=== PATIENT | male | born 1945 | race Caucasian/White ===

== ENCOUNTER 2016-11-07 13:44 | Inpatient (IN) | payer OTHER ==
[2016-11-07] MEDS ORDERED: methylPREDNISolone NA SUCC 125 MG/2 ML VIAL IVPB ONE (13:47)
[2016-11-07 13:50] VITALS: BMI 21.9
--- NOTE | 2016-11-07 13:52 | PDOC ---
History of Present Illness - General Chief Complaint: Shortness of Breath Stated Complaint: SOB Time Seen by Provider: 11/07/16 13:47 History Source: Patient - History of Present Illness Timing/Duration: reports: other Associated Symptoms: reports: cough, fever/chills, shortness of breath, wheezing. denies: chest pain/soreness Past History - Past Medical History Allergies/Adverse Reactions: Allergies Allergy/AdvReac Type Severity Reaction Status Date / Time lisinopril Allergy Swelling Verified 11/07/16 13:50 cyclobenzaprine HCl AdvReac Vomiting Verified 11/07/16 13:50 [From Flexeril] oxycodone AdvReac Vomiting Verified 11/07/16 13:50 Home Medications: Ambulatory Orders Albuterol Sulfate Inhaler - [Ventolin HFA Inhaler -] 1 - 2 inh PO Q4H PRN Omeprazole [Prilosec (RX)] 40 mg PO DAILY 06/23/15 Amlodipine Besylate [Norvasc -] 5 mg PO DAILY #30 tablet 06/25/15 Atorvastatin Ca [Lipitor] 40 mg PO HS 11/07/16 Budesonide/Formeterol Fumarate [SYMBICORT 160/4.5mcg -] 1 inh PO BID 11/07/16 Diazepam 10 mg PO DAILY 11/07/16 Finasteride [Proscar -] 5 mg PO DAILY 11/07/16 Anemia: No Asthma: No Cancer: No Cardiac Disorders: Yes (CAD) CVA: No COPD: Yes CHF: No Dementia: No Diabetes: No GI Disorders: No Disorders: Yes (PKD, BPH) HTN: Yes Hypercholesterolemia: Yes Liver Disease: No Suicide Attempt (Hx): No Seizures: No Thyroid Disease: No - Surgical History Abdominal Surgery: No Appendectomy: No Cardiac Surgery: Yes (QUAD BYPASS) Cholecystectomy: No Lung Surgery: No Neurologic Surgery: No Orthopedic Surgery: No - Immunization History Td Vaccination: No TDAP Vaccination: No Immunization Up to Date: Yes - Psycho/Social/Smoking Cessation Hx Anxiety: No Suicidal Ideation: No Smoking Status: Yes Smoking History: Former smoker Have you smoked in the past 12 months: No Number of Cigarettes Smoked Daily: 0 If you are a former smoker, when did you quit?: 2012 'Breaking Loose' booklet given: 01/08/14 Hx Alcohol Use: Yes (RARE) Drug/Substance Use Hx: No Substance Use Type: None Hx Substance Use Treatment: No Review of Systems - Review of Systems Constitutional: Yes: Fever Respiratory: Yes: Cough, Shortness of Breath, Wheezing *Physical Exam - Physical Exam General Appearance: Yes: Appropriately Dressed, Mild Distress HEENT: positive: Normal Voice Neck: positive: Supple Respiratory/Chest: positive: Wheezing Cardiovascular: positive: S1, S2 Gastrointestinal/Abdominal: positive: Soft. negative: Tender Extremity: positive: Normal Inspection Integumentary: positive: Dry, Warm Neurologic: positive: Fully Oriented, Alert, Normal Mood/Affect ED Treatment Course - LABORATORY CBC & Chemistry Diagram: 11/07/16 13:45 11/07/16 13:45 - RADIOLOGY Radiology Studies Ordered: Category Date Time Status CHEST X-RAY PORTABLE* [RAD] Stat Radiology 11/07/16 13:47 Ordered Medical Decision Making - Medical Decision Making 11/07/16 13:49 71-year-old male, history of hypertension, CAD status post CABG, BPH, COPD on 2 L oxygen at home, denies any admission for same and no history of intubations, here with worsening shortness of breath 3 days. Not relieved with medications at home. Also complaining of wheezing, cough and low-grade fever at home. No chest pain or leg pain/swelling. States symptoms feels like his COPD See exam COPD exacerbation Sating 86% on RA (baseline RA sat 92% as per pt), stable otherwise +diffuse wheezing Rest of exam unremarkable -nebs -pred -cxr r/o pna -ekg/labs -reassess 11/07/16 13:52 11/07/16 14:29 WBC 12 w/ developing PNA on CXR. abx for CAP in progress. Will c/w Dr Payne (pt' s pulm) and PMD and admit at this time 11/07/16 15:12 Pt admitted to hospitalist. Dr Payne aware 11/07/16 15:12 *DC/Admit/Observation/Transfer Diagnosis at time of Disposition: COPD exacerbation Pneumonia Qualifiers: Pneumonia type: due to unspecified organism Laterality: right Lung location: unspecified part of lung Qualified Code(s): J18.9 - Pneumonia, unspecified organism - Discharge Dispostion Condition at time of disposition: Fair Admit: Yes - Referrals Referrals: Macario Zapata MD [Primary Care Provider] -
[2016-11-07 14:00] LABS: BASOPHIL 0.9 % (0-2.0); EOSINOPHIL 0.8 % (0-4.5); MCH 29.8 pg (25.7-33.7); MCHC 32.4 g/dl (32.0-35.9); MEAN CELL VOLUME 91.9 fl (80-96); MEAN PLT VOLUME 8.8 fl (7.5-11.1); NEUTROPHILS 72.6 % (42.8-82.8); PLATELET COUNT 191 K/MM3 (134-434); RDW 13.4 % (11.9-15.9); WHITE BLOOD COUNT 12.8 K/mm3 (4.0-10.0)
[2016-11-07] MEDS: ALBUTEROL SO4 2.5/IPRATROPIUM 0.5 INH SOL 3 ML VIAL.NEB. NEB SCH ×4 (14:00→15:12)
[2016-11-07] MEDS ORDERED: MAGNESIUM SULF 50% (8.12 MEQ/2 ML-1 GM VIAL) IVPB ONE (14:27)
[2016-11-07] MEDS ORDERED: methylPREDNISolone NA SUCC 125 MG/2 ML VIAL ONE (14:27)
[2016-11-07] MEDS ORDERED: AZITHROMYCIN IVPB 500 MG in DEXTROSE 5%-WATER - 250 ML IVPB ONE (14:28)
[2016-11-07 14:29] LABS: ALBUMIN 3.9 g/dl (3.4-5.0); ANION GAP 9 (8-16); BILIRUBIN,TOTAL 0.5 mg/dL (0.2-1.0); CALCIUM 9.4 mg/dL (8.5-10.1); CO2 30 mmol/L (21-32); CREATININE 1.5 mg/dL (0.7-1.3); GLUCOSE,RANDOM 88 mg/dL (74-106); SGOT/AST 19 U/L (15-37); SGPT/ALT 25 U/L (12-78); TOT PROT 7.6 g/dl (6.4-8.2)
[2016-11-07 14:32] LABS: ALK PHOS 107 U/L (45-117); TROPONIN I < 0.02 ng/ml (0.00-0.05)
[2016-11-07] MEDS ORDERED: MAGNESIUM SULF 50% (8.12 MEQ/2 ML-1 GM VIAL) ONE (14:34)
[2016-11-07] MEDS ORDERED: AZITHROMYCIN IVPB 250 ML IVPB ONE (14:35)
[2016-11-07] MEDS ORDERED: CEFTRIAXONE 50 ML ONE (14:35)
[2016-11-07] MEDS ORDERED: ONDANSETRON 4 MG/2 ML VIAL IVPB PRN (16:02)
[2016-11-07] MEDS ORDERED: ACETAMINOPHEN 325 MG TABLET (FP) PO PRN (16:02)
[2016-11-07] MEDS ORDERED: SODIUM CHLORIDE 1,000 ML IV SCH (16:15)
--- NOTE | 2016-11-07 16:15 | PN ---
Progress Note (short form) - Note Progress Note: PULMONARY CONSULTATION DICTATED 11/07/16 IMP ACUTE ON CHRONIC HYPOXEMIC RESPIRATORY FAILURE RLL PNEUMONIA COPD EXACERBATION KATE HTN PLAN IV ANTIBIOTICS INHALED BRONCHODILATORS NASAL O2 IV STEROIDS O2 BIPAP AT NIGHT CULTURES LEGIONELLA URINARY ANTIGEN PNEUMOCOCCAL URINARY ANTIGEN F/U CHEST X-RAY Problem List - Problems (1) COPD exacerbation Code(s): J44.1 - CHRONIC OBSTRUCTIVE PULMONARY DISEASE W (ACUTE) EXACERBATION (2) Pneumonia Code(s): J18.9 - PNEUMONIA, UNSPECIFIED ORGANISM Qualifiers: Pneumonia type: due to unspecified organism Laterality: right Lung location: unspecified part of lung Qualified Code(s): J18.9 - Pneumonia, unspecified organism (3) Acute on chronic respiratory failure with hypoxemia Code(s): J96.21 - ACUTE AND CHRONIC RESPIRATORY FAILURE WITH HYPOXIA (4) Sleep apnea Code(s): G47.30 - SLEEP APNEA, UNSPECIFIED (5) Hypertension Code(s): I10 - ESSENTIAL (PRIMARY) HYPERTENSION (6) ASHD (arteriosclerotic heart disease) Code(s): I25.10 - ATHSCL HEART DISEASE OF [place] CORONARY ARTERY W/O ANG PCTRS (7) S/P CABG (coronary artery bypass graft) Code(s): Z95.1 - PRESENCE OF AORTOCORONARY BYPASS GRAFT
[2016-11-07] MEDS ORDERED: ACETAMINOPHEN 325 MG TABLET (FP) ONE (16:21)
[2016-11-07] MEDS ORDERED: methylPREDNISolone NA SUCC 40 MG/1 ML VIAL IVPB SCH ×2 (16:30→18:00)
--- NOTE | 2016-11-07 16:31 | HP ---
CHIEF COMPLAINT: Shortness of breath PCP: Dr. Zapata Centrifugal Machine Tender: Dr. Payne HISTORY OF PRESENT ILLNESS: This is a 71 year old male with a history of COPD ( on CPAP at night, denies using home O2), CAD s/p CABG, HTN, and BPH who presented to the ED today complaining of 3 days of worsening dyspnea (now on minimal exertion), fever up to 102, and cough productive of yellow sputum. ER course was notable for: (1) SpO2 86% on RA (patient states 92% is his baseline) (2) CXR: RLL infiltrate (3) WBC 12.8 (4) Cr 1.5 - near baseline Recent Travel: Most recently [place] May 2016 Social History: Lives with . 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 Denies occupational fume exposure. Smoking: Quit in 2012 but "cheats" Alcohol: Occasional Allergies lisinopril Allergy (Verified 11/07/16 13:50) Swelling angioedema cyclobenzaprine HCl [From Flexeril] Adverse Reaction (Verified 11/07/16 13:50) Vomiting oxycodone Adverse Reaction (Verified 11/07/16 13:50) Vomiting HOME MEDICATIONS: Home Medications Medication Instructions Recorded Albuterol Sulfate Inhaler - 1 - 2 inh PO Q4H PRN 06/23/15 [Ventolin HFA Inhaler -] Omeprazole [Prilosec (RX)] 40 mg PO DAILY 06/23/15 Amlodipine Besylate [Norvasc -] 5 mg PO DAILY #30 tablet 06/25/15 Atorvastatin Ca [Lipitor] 40 mg PO HS 11/07/16 Budesonide/Formeterol Fumarate 1 inh PO BID 11/07/16 [SYMBICORT 160/4.5mcg -] Diazepam 10 mg PO DAILY 11/07/16 Finasteride [Proscar -] 5 mg PO DAILY 11/07/16 REVIEW OF SYSTEMS CONSTITUTIONAL: Fevers/chills, weakness Absent: loss of appetite, weight change HEENT: Absent: rhinorrhea, nasal congestion, throat pain, throat swelling, difficulty swallowing, mouth swelling, ear pain, eye pain, visual changes CARDIOVASCULAR: Absent: chest pain, syncope, palpitations, irregular heart rate, lightheadedness , peripheral edema RESPIRATORY: See HPI GASTROINTESTINAL: Absent: abdominal pain, abdominal distension, nausea, vomiting, diarrhea, constipation, melena, hematochezia GENITOURINARY: Absent: dysuria, frequency, urgency, hesitancy, hematuria, flank pain, genital pain MUSCULOSKELETAL: Absent: myalgia, arthralgia, joint swelling, back pain, neck pain SKIN: Absent: rash, itching, pallor HEMATOLOGIC/IMMUNOLOGIC: Absent: easy bleeding, easy bruising, lymphadenopathy, frequent infections ENDOCRINE: Absent: unexplained weight gain, unexplained weight loss, heat intolerance, cold intolerance NEUROLOGIC: Absent: headache, focal weakness or paresthesias, dizziness, unsteady gait, seizure, mental status changes, bladder or bowel incontinence PSYCHIATRIC: Absent: anxiety, depression, suicidal or homicidal ideation, hallucinations. PHYSICAL EXAMINATION Vital Signs - 24 hr 11/07/16 11/07/16 15:52 16:20 Temperature 101.1 F H Pulse Rate [ 109 H Apical] Respiratory 26 H Rate Blood Pressure 137/79 [Right Arm] O2 Sat by Pulse 94 L Oximetry (%) GENERAL: Awake, alert, and fully oriented, in no acute distress. HEAD: Normal with no signs of trauma. EYES: Pupils equal, round and reactive to light, extraocular movements intact, sclera anicteric, conjunctiva clear. No lid lag. EARS, NOSE, THROAT: Ears normal, nares patent, oropharynx clear without exudates. Moist mucous membranes. NECK: Normal range of motion, supple without lymphadenopathy, JVD, or masses. LUNGS: Diffuse expiratory wheezing with poor air entry bilaterally. Tachypneic. Pursed-lip breathing. HEART: Regular rate and rhythm, normal S1 and S2 without murmur, rub or gallop. ABDOMEN: Soft, nontender, not distended, normoactive bowel sounds, no guarding, no rebound, no masses. No hepatomegaly or splenomegaly. MUSCULOSKELETAL: Normal range of motion at all joints. No bony deformities or tenderness. No CVA tenderness. UPPER EXTREMITIES: 2+ pulses, warm, well-perfused. No cyanosis. No clubbing. Cap refill <2 seconds. No peripheral edema. LOWER EXTREMITIES: 2+ pulses, warm, well-perfused. No calf tenderness. No peripheral edema. NEUROLOGICAL: Cranial nerves II-XII intact. Normal speech. Normal gait. PSYCHIATRIC: Cooperative. Good eye contact. Appropriate mood and affect. SKIN: Warm, dry, normal turgor, no rashes or lesions noted. ASSESSMENT/PLAN: 71 year old male admitted with COPD exacerbation and pneumonia. Problem List - Problem (1) COPD exacerbation Assessment/Plan: -O2 2L via nc; Bipap at night -Continue Symbicort -Albuterol nebs q4h standing while awake -Solu-Medrol 60mg IVPB q8h, taper as tolerated -Pulmonary following Code(s): J44.1 - CHRONIC OBSTRUCTIVE PULMONARY DISEASE W (ACUTE) EXACERBATION (2) Acute on chronic respiratory failure with hypoxemia Assessment/Plan: -As above Code(s): J96.21 - ACUTE AND CHRONIC RESPIRATORY FAILURE WITH HYPOXIA (3) Pneumonia Assessment/Plan: -Continue Ceftriaxone/Azithromycin for CAP -Follow up blood cultures -Obtain sputum culture, urine antigens -Check flu swab -Follow fever/WBC curves Code(s): J18.9 - PNEUMONIA, UNSPECIFIED ORGANISM Qualifiers: Pneumonia type: due to unspecified organism Laterality: right Lung location: unspecified part of lung Qualified Code(s): J18.9 - Pneumonia, unspecified organism (4) Renal insufficiency Assessment/Plan: -Near baseline -Avoid nephrotoxic meds as able Code(s): N28.9 - DISORDER OF KIDNEY AND URETER, UNSPECIFIED (5) Hypertension Assessment/Plan: -At goal -Continue home Norvasc Code(s): I10 - ESSENTIAL (PRIMARY) HYPERTENSION (6) DVT prophylaxis Assessment/Plan: -Heparin 5000 units sq tid -Ambulation when respiratory status improves Code(s): [id number] - Visit type - Emergency Visit Emergency Visit: Yes ED Registration Date: 11/07/16 Care time: The patient presented to the Emergency Department on the above date and was hospitalized for further evaluation of their emergent condition. - New Patient This patient is new to me today: Yes Date on this admission: 11/07/16 - Critical Care Critical Care patient: No
[2016-11-07] MEDS: HEPARIN NA (PORCINE) 5,000 UNITS/ML 1ML VIAL SQ SCH (18:02)
[2016-11-07] MEDS: ALBUTEROL SO4 0.083% IH SOL 2.5 MG/3 ML VIAL.NEB. NEB SCH (20:05)
[2016-11-07] MEDS: BUDESONIDE/FORMETEROL FUMARATE 160/4.5 mcg INHALER IH SCH (21:26)
[2016-11-07] MEDS: ATORVASTATIN CA 40 MG TABLET (FP) PO SCH (21:26)
[2016-11-07] MEDS: DOCUSATE SODIUM 100 MG CAPSULE (FP) PO SCH (21:26)
[2016-11-08] MEDS: methylPREDNISolone NA SUCC 40 MG/1 ML VIAL IVPB SCH ×5 (00:10→21:30)
[2016-11-08] MEDS: ALBUTEROL SO4 0.083% IH SOL 2.5 MG/3 ML VIAL.NEB. NEB SCH ×6 (00:51→23:19)
[2016-11-08] MEDS: HEPARIN NA (PORCINE) 5,000 UNITS/ML 1ML VIAL SQ SCH ×3 (02:30→18:00)
[2016-11-08] MEDS: DOCUSATE SODIUM 100 MG CAPSULE (FP) PO SCH ×3 (05:51→21:32)
[2016-11-08 07:42] LABS: BASOPHIL 0.4 % (0-2.0); MCH 31.5 pg (25.7-33.7); MCHC 33.8 g/dl (32.0-35.9); MEAN CELL VOLUME 93.2 fl (80-96); MEAN PLT VOLUME 8.9 fl (7.5-11.1); NEUTROPHILS 92.4 % (42.8-82.8); PLATELET COUNT 196 K/MM3 (134-434); RDW 13.2 % (11.9-15.9); WHITE BLOOD COUNT 15.6 K/mm3 (4.0-10.0)
[2016-11-08 08:05] LABS: ALBUMIN 3.7 g/dl (3.4-5.0); BILIRUBIN,TOTAL 0.3 mg/dL (0.2-1.0); CALCIUM 9.1 mg/dL (8.5-10.1); CREATININE 1.5 mg/dL (0.7-1.3); MAGNESIUM 2.5 mg/dL (1.8-2.4); TOT PROT 7.1 g/dl (6.4-8.2)
--- NOTE | 2016-11-08 08:14 | PN ---
Physical Exam: SUBJECTIVE: Patient seen and examined Patient is feeling better today. On oxygen at home and Cpap at nights. OBJECTIVE: Vital Signs Temperature 97.5 F L 11/08/16 07:39 Pulse Rate 69 11/08/16 07:39 Respiratory Rate 20 11/08/16 07:39 Blood Pressure 128/73 11/08/16 07:39 O2 Sat by Pulse Oximetry (%) 98 11/08/16 00:50 GENERAL: The patient is awake, alert, and fully oriented, in no acute distress. HEAD: Normal with no signs of trauma. EYES: PERRL, extraocular movements intact, sclera anicteric, conjunctiva clear. No ptosis. ENT: Ears normal, nares patent, oropharynx clear without exudates, moist mucous membranes. NECK: Trachea midline, full range of motion, supple. LUNGS: POsitive for Rhonchi Bl , no crackles, no accessory muscle use. HEART: Regular rate and rhythm, S1, S2 positive, no rub or gallop. ABDOMEN: Soft, nontender, nondistended, normoactive bowel sounds, no guarding, no rebound, no hepatosplenomegaly, no masses. EXTREMITIES: 2+ pulses, warm, well-perfused, no edema. NEUROLOGICAL: Cranial nerves II through XII grossly intact. Normal speech, gait not observed. PSYCH: Normal mood, normal affect. SKIN: Warm, dry, normal turgor, no rashes or lesions noted Laboratory Results - last 24 hr 11/08/16 11/08/16 07:05 07:05 WBC 15.6 H RBC 4.84 Hgb 15.3 Hct 45.1 MCV 93.2 MCHC 33.8 RDW 13.2 Plt Count 196 MPV 8.9 Neutrophils % 92.4 H D Lymphocytes % 4.6 L D Monocytes % 2.6 L Eosinophils % 0.0 D Basophils % 0.4 Sodium 142 Potassium 4.6 Chloride 104 Carbon Dioxide 27 Anion Gap 11 BUN 29 H D Creatinine 1.5 H Creat Clearance w eGFR 45.87 Random Glucose 179 H D Calcium 9.1 Magnesium 2.5 H D Total Bilirubin 0.3 D AST 14 L D ALT 24 Alkaline Phosphatase 95 Total Protein 7.1 Albumin 3.7 Active Medications Generic Name Dose Route Start Last Admin Trade Name Freq PRN Reason Stop Dose Admin Acetaminophen 650 mg 11/07/16 16:02 11/07/16 16:23 Tylenol - PO 650 mg Q4H PRN Administration FEVER OR PAIN Albuterol Sulfate 1 amp 11/07/16 16:00 11/08/16 00:51 Ventolin 0.083% Nebulizer Soln - NEB Not Given Q4H JONATHAN Amlodipine Besylate 5 mg 11/08/16 10:00 Norvasc - PO DAILY [facility] Atorvastatin [place] 40 mg 11/07/16 22:00 11/07/16 21:26 Lipitor - PO 40 mg HS JONATHAN Administration Budesonide/Formoterol Fumarate 1 puff 11/07/16 22:00 11/07/16 21:26 Symbicort 160/4.5mcg - IH 1 puff BID JONATHAN Administration Ceftriaxone Sodium 1 gm 11/08/16 10:00 Rocephin 1gm Ivpb (Pre-Docked) IVPB DAILY [facility] Docusate Sodium 100 mg 11/07/16 22:00 11/08/16 05:51 Colace - PO 100 mg TID JONATHAN Administration Finasteride 5 mg 11/08/16 10:00 Proscar - PO DAILY [facility] Heparin Sodium (Porcine) 5,000 unit 11/07/16 18:00 11/08/16 02:30 Heparin - SQ 5,000 unit Q8H-IV JONATHAN Administration Azithromycin 250 mg/ Dextrose 250 mls @ 250 mls/hr 11/08/16 10:00 IVPB DAILY [facility] Methylprednisolone Sodium Succinate 60 mg 11/07/16 22:30 11/08/16 03:42 Solu-Medrol - IVPB 60 mg Q6H-IV JONATHAN Administration Ondansetron HCl 4 mg 11/07/16 16:02 Zofran Injection IVPB Q6H PRN NAUSEA Pantoprazole Sodium 40 mg 11/08/16 10:00 Protonix - PO DAILY [facility] Tiotropium [place] 1 puff 11/08/16 10:00 Spiriva - IH DAILY [facility] ASSESSMENT/PLAN: 71 year old male admitted with COPD exacerbation and pneumonia. # Acute COPD exacerbation ;O2 2L via nc;continue Bipap at night;Continue Symbicort ,Spiriva, Albuterol nebs q4h standing while awake -Solu-Medrol 60mg IVPB q6h, taper as tolerated starting am; Pulmonary consult appreciated, Continue Zithromax and Rocephin IV # Acute on chronic respiratory failure with hypoxemia due to COPD exacerbation and Pneumonia # Acute Pneumonia Continue Ceftriaxone/Azithromycin for CAP;Follow up blood cultures; Obtain sputum culture, urine antigens -Check flu swab # Acute Renal Failure Avoid nephrotoxic meds, monitor level daily # Hypertension Continue home Norvasc DVT prophylaxis: Heparin 5000 units sq tid; Ambulation when respiratory status improves Visit type - Emergency Visit Emergency Visit: Yes ED Registration Date: 11/07/16 Care time: The patient presented to the Emergency Department on the above date and was hospitalized for further evaluation of their emergent condition. - New Patient This patient is new to me today: Yes Date on this admission: 11/08/16 - Critical Care Critical Care patient: No
[2016-11-08] MEDS ORDERED: PT OWN MED DRAWER 7, Y5N ONE ×3 (09:08→21:25)
[2016-11-08] MEDS ORDERED: CEFTRIAXONE 1 GM in DEXTROSE 5%-WATER - 50 ML IVPB SCH (10:00)
[2016-11-08] MEDS: PANTOPRAZOLE 40 MG TABLET (FP) PO SCH (10:03)
[2016-11-08] MEDS: FINASTERIDE 5 MG TABLET (FP) PO SCH (10:03)
[2016-11-08] MEDS: amLODIPine BESYLATE 5 MG TABLET (FP) PO SCH (10:03)
[2016-11-08] MEDS: cefTRIAXone 1 GM/50 ML BAG (PRE-DOCKED) IVPB SCH (11:02)
[2016-11-08] MEDS: TIOTROPIUM BROMIDE 18 MCG/INH (DEVICE W/ 5 CAPSULES) IH SCH (12:00)
--- NOTE | 2016-11-08 12:09 | PN ---
Progress Note, Physician History of Present Illness: PULMONARY ALERT,FEELING BETTER,LESS DYSPNEIC,+COUGH - Current Medication List Current Medications: Active Medications Acetaminophen (Tylenol -) 650 mg PO Q4H PRN PRN Reason: FEVER OR PAIN Last Admin: 11/07/16 16:23 Dose: 650 mg Albuterol Sulfate (Ventolin 0.083% Nebulizer Soln -) 1 amp NEB Q4H [facility] Last Admin: 11/08/16 00:51 Dose: Not Given Amlodipine Besylate (Norvasc -) 5 mg PO DAILY [facility] Last Admin: 11/08/16 10:03 Dose: 5 mg Atorvastatin [place] (Lipitor -) 40 mg PO HS [facility] Last Admin: 11/07/16 21:26 Dose: 40 mg Budesonide/Formoterol Fumarate (Symbicort 160/4.5mcg -) 1 puff IH BID [facility] Last Admin: 11/07/16 21:26 Dose: 1 puff Ceftriaxone Sodium (Rocephin 1gm Ivpb (Pre-Docked)) 1 gm IVPB DAILY [facility] Last Admin: 11/08/16 11:02 Dose: 1 gm Docusate Sodium (Colace -) 100 mg PO TID [facility] Last Admin: 11/08/16 05:51 Dose: 100 mg Finasteride (Proscar -) 5 mg PO DAILY [facility] Last Admin: 11/08/16 10:03 Dose: 5 mg Heparin Sodium (Porcine) (Heparin -) 5,000 unit SQ Q8H-IV [facility] Last Admin: 11/08/16 10:03 Dose: 5,000 unit Azithromycin 250 mg/ Dextrose 250 mls @ 250 mls/hr IVPB DAILY [facility] Methylprednisolone Sodium Succinate (Solu-Medrol -) 60 mg IVPB Q6H-IV [facility] Last Admin: 11/08/16 09:45 Dose: 60 mg Ondansetron HCl (Zofran Injection) 4 mg IVPB Q6H PRN PRN Reason: NAUSEA Pantoprazole Sodium (Protonix -) 40 mg PO DAILY [facility] Last Admin: 11/08/16 10:03 Dose: 40 mg Tiotropium [place] (Spiriva -) 1 puff IH DAILY [facility] - Objective Vital Signs: Vital Signs Temperature 97.5 F L 11/08/16 07:39 Pulse Rate 72 11/08/16 10:00 Respiratory Rate 22 11/08/16 10:00 Blood Pressure 140/72 11/08/16 10:00 O2 Sat by Pulse Oximetry (%) 92 L 11/08/16 09:00 Constitutional: Yes: Well Nourished, Calm Eyes: Yes: WNL HENT: Yes: WNL Neck: Yes: WNL Cardiovascular: Yes: Regular Rate and Rhythm, S1, S2 Respiratory: Yes: Rhonchi (SCATTERED CHERRY RHONCHI) Gastrointestinal: Yes: Normal Bowel Sounds, Soft Extremities: Yes: WNL Edema: No Labs: CBC, BMP 11/08/16 07:05 11/08/16 07:05 Problem List - Problems (1) COPD exacerbation Code(s): J44.1 - CHRONIC OBSTRUCTIVE PULMONARY DISEASE W (ACUTE) EXACERBATION (2) Pneumonia Code(s): J18.9 - PNEUMONIA, UNSPECIFIED ORGANISM Qualifiers: Pneumonia type: due to unspecified organism Laterality: right Lung location: unspecified part of lung Qualified Code(s): J18.9 - Pneumonia, unspecified organism (3) Acute on chronic respiratory failure with hypoxemia Code(s): J96.21 - ACUTE AND CHRONIC RESPIRATORY FAILURE WITH HYPOXIA (4) Sleep apnea Code(s): G47.30 - SLEEP APNEA, UNSPECIFIED (5) Hypertension Code(s): I10 - ESSENTIAL (PRIMARY) HYPERTENSION (6) ASHD (arteriosclerotic heart disease) Code(s): I25.10 - ATHSCL HEART DISEASE OF [place] CORONARY ARTERY W/O ANG PCTRS (7) S/P CABG (coronary artery bypass graft) Code(s): Z95.1 - PRESENCE OF AORTOCORONARY BYPASS GRAFT Assessment/Plan MP ACUTE ON CHRONIC HYPOXEMIC RESPIRATORY FAILURE RLL PNEUMONIA COPD EXACERBATION KATE HTN PLAN IV ANTIBIOTICS INHALED BRONCHODILATORS NASAL O2 CONTINUE IV STEROIDS O2 BIPAP AT NIGHT F/U CHEST X-RAY IN AM Problem List - Problems (1) COPD exacerbation Code(s): J44.1 - CHRONIC OBSTRUCTIVE PULMONARY DISEASE W (ACUTE) EXACERBATION (2) Pneumonia Code(s): J18.9 - PNEUMONIA, UNSPECIFIED ORGANISM Qualifiers: Pneumonia type: due to unspecified organism Laterality: right Lung location: unspecified part of lung Qualified Code(s): J18.9 - Pneumonia, unspecified organism (3) Acute on chronic respiratory failure with hypoxemia Code(s): J96.21 - ACUTE AND CHRONIC RESPIRATORY FAILURE WITH HYPOXIA (4) Sleep apnea Code(s): G47.30 - SLEEP APNEA, UNSPECIFIED (5) Hypertension Code(s): I10 - ESSENTIAL (PRIMARY) HYPERTENSION (6) ASHD (arteriosclerotic heart disease) Code(s): I25.10 - ATHSCL HEART DISEASE OF [place] CORONARY ARTERY W/O ANG PCTRS (7) S/P CABG (coronary artery bypass graft) Code(s): Z95.1 - PRESENCE OF AORTOCORONARY BYPASS GRAFT
[2016-11-08] MEDS: BUDESONIDE/FORMETEROL FUMARATE 160/4.5 mcg INHALER IH SCH ×2 (12:11→21:31)
[2016-11-08] MEDS: AZITHROMYCIN IVPB 250 MG in DEXTROSE 5%-WATER - 250 ML IVPB SCH (12:11)
[2016-11-08] MEDS ORDERED: BENZOCAINE/MENTH/CETYLPYRD CL 1 EACH LOZENGE MM ONE (17:15)
[2016-11-08] MEDS ORDERED: guaiFENesin/CODEINE 5 ML UNIT-DOSE CUPS PO PRN (19:02)
[2016-11-08] MEDS: ATORVASTATIN CA 40 MG TABLET (FP) PO SCH (21:31)
--- NOTE | 2016-11-08 21:32 | CONS ---
DATE OF CONSULTATION: 11/07/2016 PULMONARY CONSULTATION REFERRING PHYSICIAN: HISTORY OF PRESENT ILLNESS: The patient is a 71-year-old male known to me from previous hospitalization, office followup. Has advanced COPD on home O2, obstructive sleep apnea on CPAP, hypertension, ASHD status post CABG, BPH tobacco use, quit a few years ago, admitted to [facility] with complaint of couple day history of increasing shortness of breath, cough, and sputum production. Patient states he started developing increasing shortness of breath and cough of 2-3 days ago. He developed fever greater than 101, felt weak as well as increasing shortness of breath and wheezing. Despite taking his inhalers, symptoms worsened. He called me today, and I advised him to go to the emergency room. In the ER he was noted to have right lower lobe pneumonia. Initially on admission also was noted to be saturating at 86% on room air. Patient denies any chest pain, nausea, vomiting, diaphoreses. Denies any hemoptysis. There is no headache, no visual disturbance. There is no history of recent travel. PAST MEDICAL HISTORY: Again includes ASHD status post CABG, BPH, COPD on home O2, obstructive sleep apnea, hypertension. MEDICATION: Prior to admission include albuterol, Proscar, diazepam, Symbicort, Lipitor, Norvasc, omeprazole. REVIEW OF SYSTEMS: Positive cough. Positive sputum. Positive shortness of breath. Positive wheezing. No chest pain, no palpitation, no nausea, no vomiting. Positive fevers, positive chills, no lower extremity edema, no abdominal pain, no lower extremity edema. PHYSICAL EXAMINATION: General: The patient is a well-developed male, awake, alert, in no acute distress. Vital signs: Do not have a temperature. His O2 saturation is 86 on room air, 94 on 2 L, heart rate 54, blood pressure 137/79, respiratory rate 26. HEENT: Head is normocephalic, atraumatic. Neck: Supple. Heart: Regular. Normal S1, S2. Chest: Diffuse bilateral inspiratory and expiratory wheezes. Abdomen: Soft. Bowel sounds positive. Extremities: No cyanosis, edema. LABORATORY: WBC is 12.8, hemoglobin 16.6, hematocrit 51.2, platelet count of 191,000. BUN 23, creatinine 1.5. Chest x-ray, right lower lobe infiltrate. IMPRESSION: 1. Uwryo-ho-olmebxl hypoxemic respiratory failure secondary to right lower lobe pneumonia. 2. Advanced chronic obstructive pulmonary disease with exacerbation. 3. Atherosclerotic heart disease status post coronary artery bypass graft. 4. Obstructive sleep apnea on CPAP. 5. Benign prostatic hypertrophy. 6. Hypertension. PLAN: IV steroids. Inhaled bronchodilators. Supplemental O2. Antibiotics, cover for community acquired pneumonia. Followup chest x-rays. Supplement CPAP, BiPAP at night. Sputum for C&S. Legionella urine antigen. Pneumococcal urine antigen. LEILANI PRO M.D. [id number]
[2016-11-09] MEDS: methylPREDNISolone NA SUCC 40 MG/1 ML VIAL IVPB SCH ×4 (02:36→21:27)
[2016-11-09] MEDS: ALBUTEROL SO4 0.083% IH SOL 2.5 MG/3 ML VIAL.NEB. NEB SCH ×5 (04:00→23:57)
[2016-11-09] MEDS: DOCUSATE SODIUM 100 MG CAPSULE (FP) PO SCH ×3 (06:03→21:28)
[2016-11-09] MEDS: BENZOCAINE/MENTH/CETYLPYRD CL 1 EACH LOZENGE MM PRN ×3 (06:26→20:12)
[2016-11-09] MEDS ORDERED: PT OWN MED DRAWER 7, Y5N ONE (08:43)
[2016-11-09] MEDS ORDERED: guaiFENesin/CODEINE 5 ML UNIT-DOSE CUPS PO PRN (08:52)
--- NOTE | 2016-11-09 08:54 | PN ---
Physical Exam: SUBJECTIVE: Patient seen and examined robutussin worked well for him, stopped the cough and he was able to sleep well. no upset stomach, n/v, abdominal pain - which are his usual symptoms to taking oxycodone. OBJECTIVE: Vital Signs Period Temp Pulse Resp BP Sys/Velázquez Pulse Ox Last 24 Hr 97.3 F-98.7 F 69-83 20-22 108-140/65-73 92-97 GENERAL: The patient is awake, alert, and fully oriented, in no acute distress. EYES: extraocular movements intact ENT: nares patent, oropharynx clear without exudates, moist mucous membranes. NECK: Trachea midline, full range of motion, supple. LUNGS: expiratory wheezing throughout b/l HEART: Regular rate and rhythm, S1, S2 without murmur, rub or gallop. ABDOMEN: Soft, nontender, nondistended, normoactive bowel sounds EXTREMITIES: 2+ pulses, warm, well-perfused, no edema. Active Medications Active Medications Acetaminophen (Tylenol -) 650 mg PO Q4H PRN PRN Reason: FEVER OR PAIN Last Admin: 11/07/16 16:23 Dose: 650 mg Albuterol Sulfate (Ventolin 0.083% Nebulizer Soln -) 1 amp NEB Q4H [facility] Last Admin: 11/09/16 18:52 Dose: 1 amp Amlodipine Besylate (Norvasc -) 5 mg PO DAILY [facility] Last Admin: 11/09/16 09:33 Dose: 5 mg Atorvastatin Calcium (Lipitor -) 40 mg PO HS [facility] Last Admin: 11/08/16 21:31 Dose: 40 mg Benzocaine/Menthol (Cepacol Lozenge -) 1 each MM Q4H PRN PRN Reason: SORE THROAT Last Admin: 11/09/16 20:12 Dose: 1 each Budesonide/Formoterol Fumarate (Symbicort 160/4.5mcg -) 1 puff IH BID [facility] Last Admin: 11/09/16 09:34 Dose: 1 puff Ceftriaxone Sodium (Rocephin 1gm Ivpb (Pre-Docked)) 1 gm IVPB DAILY [facility] Last Admin: 11/09/16 10:49 Dose: 1 gm Docusate Sodium (Colace -) 100 mg PO TID [facility] Last Admin: 11/09/16 14:58 Dose: Not Given Finasteride (Proscar -) 5 mg PO DAILY [facility] Last Admin: 11/09/16 09:33 Dose: 5 mg Guaifenesin/Codeine Phosphate (Robitussin Ac -) 10 ml PO Q6H PRN PRN Reason: COUGH Last Admin: 11/09/16 15:12 Dose: 10 ml Heparin Sodium (Porcine) (Heparin -) 5,000 unit SQ BID [facility] Last Admin: 11/09/16 09:32 Dose: 5,000 unit Azithromycin 250 mg/ Dextrose 250 mls @ 250 mls/hr IVPB DAILY [facility] Last Admin: 11/09/16 12:40 Dose: 250 mls/hr Methylprednisolone Sodium Succinate (Solu-Medrol -) 40 mg IVPB Q6H-IV [facility] Last Admin: 11/09/16 15:14 Dose: 40 mg Ondansetron HCl (Zofran Injection) 4 mg IVPB Q6H PRN PRN Reason: NAUSEA Tiotropium [place] (Spiriva -) 1 puff IH DAILY [facility] Last Admin: 11/09/16 10:49 Dose: 1 inh ASSESSMENT/PLAN: 71 yr old man with COPD, CAD s/p CABG, HTN, BPH presented with worsening dyspnea admitted for CAP with copd exacerbation. #community acquire pnuemonia/acute COPD exacerbation, acute on chronic respiratory failure - azithromycin 250ivpb daily -- start 3/4 - rocephin 1gm ivpb daily -- start 3/4 - ventolin q4 serge, symbicort bid, spiriva daily, - solumedrol 40mg ivpb q6hr - robutussion AC 10ml po q6hr - bld cx pending, sputum cx pending, - flu and legionella negative #TAVO (baseline 1.2) - monitor renal fx - urine studies - avoid nephrotoxic medications - BUN also elevated possibly pre-renal from poor po intake # HTN Norvasc #HLd - lipitor #Diet: regular #DVT: Heparin 5000 units sq tid Visit type - Emergency Visit Emergency Visit: No - New Patient This patient is new to me today: No - Critical Care Critical Care patient: No - Discharge Referral Referred to [facility] No
[2016-11-09] MEDS: HEPARIN NA (PORCINE) 5,000 UNITS/ML 1ML VIAL SQ SCH ×2 (09:32→21:28)
[2016-11-09] MEDS: amLODIPine BESYLATE 5 MG TABLET (FP) PO SCH (09:33)
[2016-11-09] MEDS: FINASTERIDE 5 MG TABLET (FP) PO SCH (09:33)
[2016-11-09] MEDS: PANTOPRAZOLE 40 MG TABLET (FP) PO SCH (09:34)
[2016-11-09] MEDS: BUDESONIDE/FORMETEROL FUMARATE 160/4.5 mcg INHALER IH SCH ×2 (09:34→21:28)
[2016-11-09] MEDS: TIOTROPIUM BROMIDE 18 MCG/INH (DEVICE W/ 5 CAPSULES) IH SCH (10:49)
[2016-11-09] MEDS: cefTRIAXone 1 GM/50 ML BAG (PRE-DOCKED) IVPB SCH (10:49)
[2016-11-09] MEDS: AZITHROMYCIN IVPB 250 MG in DEXTROSE 5%-WATER - 250 ML IVPB SCH (12:40)
--- NOTE | 2016-11-09 12:51 | PN ---
Progress Note, Physician History of Present Illness: PULMONARY ALERT,LESS DYSPNEIC,+COUGH - Current Medication List Current Medications: Active Medications Acetaminophen (Tylenol -) 650 mg PO Q4H PRN PRN Reason: FEVER OR PAIN Last Admin: 11/07/16 16:23 Dose: 650 mg Albuterol Sulfate (Ventolin 0.083% Nebulizer Soln -) 1 amp NEB Q4H [facility] Last Admin: 11/09/16 11:26 Dose: 1 amp Amlodipine Besylate (Norvasc -) 5 mg PO DAILY [facility] Last Admin: 11/09/16 09:33 Dose: 5 mg Atorvastatin Calcium (Lipitor -) 40 mg PO HS [facility] Last Admin: 11/08/16 21:31 Dose: 40 mg Benzocaine/Menthol (Cepacol Lozenge -) 1 each MM Q4H PRN PRN Reason: SORE THROAT Last Admin: 11/09/16 06:26 Dose: 1 each Budesonide/Formoterol Fumarate (Symbicort 160/4.5mcg -) 1 puff IH BID [facility] Last Admin: 11/09/16 09:34 Dose: 1 puff Ceftriaxone Sodium (Rocephin 1gm Ivpb (Pre-Docked)) 1 gm IVPB DAILY [facility] Last Admin: 11/09/16 10:49 Dose: 1 gm Docusate Sodium (Colace -) 100 mg PO TID [facility] Last Admin: 11/09/16 06:03 Dose: Not Given Finasteride (Proscar -) 5 mg PO DAILY [facility] Last Admin: 11/09/16 09:33 Dose: 5 mg Guaifenesin/Codeine Phosphate (Robitussin Ac -) 5 ml PO HS PRN PRN Reason: COUGH Stop: 11/09/16 19:01 Last Admin: 11/08/16 20:18 Dose: 5 ml Guaifenesin/Codeine Phosphate (Robitussin Ac -) 5 ml PO Q6H PRN PRN Reason: COUGH Last Admin: 11/09/16 09:11 Dose: 5 ml Heparin Sodium (Porcine) (Heparin -) 5,000 unit SQ BID [facility] Last Admin: 11/09/16 09:32 Dose: 5,000 unit Azithromycin 250 mg/ Dextrose 250 mls @ 250 mls/hr IVPB DAILY [facility] Last Admin: 11/09/16 12:40 Dose: 250 mls/hr Methylprednisolone Sodium Succinate (Solu-Medrol -) 60 mg IVPB Q6H-IV [facility] Last Admin: 11/09/16 09:11 Dose: 60 mg Ondansetron HCl (Zofran Injection) 4 mg IVPB Q6H PRN PRN Reason: NAUSEA Pantoprazole Sodium (Protonix -) 40 mg PO DAILY [facility] Last Admin: 11/09/16 09:34 Dose: 40 mg Tiotropium [place] (Spiriva -) 1 puff IH DAILY [facility] Last Admin: 11/09/16 10:49 Dose: 1 inh - Objective Vital Signs: Vital Signs Temperature 98.7 F 11/09/16 06:00 Pulse Rate 72 11/09/16 09:00 Respiratory Rate 22 11/09/16 09:00 Blood Pressure 128/68 11/09/16 09:00 O2 Sat by Pulse Oximetry (%) 95 11/09/16 10:40 Constitutional: Yes: Well Nourished, Calm Eyes: Yes: WNL HENT: Yes: WNL Neck: Yes: WNL Cardiovascular: Yes: Regular Rate and Rhythm, S1, S2 Respiratory: Yes: Rhonchi (CHERRY RHONCHI) Gastrointestinal: Yes: Normal Bowel Sounds, Soft Extremities: Yes: WNL Edema: No Labs: CBC, BMP Problem List - Problems (1) COPD exacerbation Code(s): J44.1 - CHRONIC OBSTRUCTIVE PULMONARY DISEASE W (ACUTE) EXACERBATION (2) Pneumonia Code(s): J18.9 - PNEUMONIA, UNSPECIFIED ORGANISM Qualifiers: Pneumonia type: due to unspecified organism Laterality: right Lung location: unspecified part of lung Qualified Code(s): J18.9 - Pneumonia, unspecified organism (3) Acute on chronic respiratory failure with hypoxemia Code(s): J96.21 - ACUTE AND CHRONIC RESPIRATORY FAILURE WITH HYPOXIA (4) Sleep apnea Code(s): G47.30 - SLEEP APNEA, UNSPECIFIED (5) Hypertension Code(s): I10 - ESSENTIAL (PRIMARY) HYPERTENSION (6) ASHD (arteriosclerotic heart disease) Code(s): I25.10 - ATHSCL HEART DISEASE OF [place] CORONARY ARTERY W/O ANG PCTRS (7) S/P CABG (coronary artery bypass graft) Code(s): Z95.1 - PRESENCE OF AORTOCORONARY BYPASS GRAFT Assessment/Plan MP ACUTE ON CHRONIC HYPOXEMIC RESPIRATORY FAILURE RLL PNEUMONIA COPD EXACERBATION KATE HTN PLAN IV ANTIBIOTICS INHALED BRONCHODILATORS NASAL O2 STEROID TAPER O2 BIPAP AT NIGHT F/U CHEST X-RAY IN AM Problem List - Problems (1) COPD exacerbation Code(s): J44.1 - CHRONIC OBSTRUCTIVE PULMONARY DISEASE W (ACUTE) EXACERBATION (2) Pneumonia Code(s): J18.9 - PNEUMONIA, UNSPECIFIED ORGANISM Qualifiers: Pneumonia type: due to unspecified organism Laterality: right Lung location: unspecified part of lung Qualified Code(s): J18.9 - Pneumonia, unspecified organism (3) Acute on chronic respiratory failure with hypoxemia Code(s): J96.21 - ACUTE AND CHRONIC RESPIRATORY FAILURE WITH HYPOXIA (4) Sleep apnea Code(s): G47.30 - SLEEP APNEA, UNSPECIFIED (5) Hypertension Code(s): I10 - ESSENTIAL (PRIMARY) HYPERTENSION (6) ASHD (arteriosclerotic heart disease) Code(s): I25.10 - ATHSCL HEART DISEASE OF [place] CORONARY ARTERY W/O ANG PCTRS (7) S/P CABG (coronary artery bypass graft) Code(s): Z95.1 - PRESENCE OF AORTOCORONARY BYPASS GRAFT
--- NOTE | 2016-11-09 13:51 | CON.NEP ---
Consult Consult Specialty:: Nephrology Reason for Consultation:: ckd - History of Present Illness Chief Complaint: dyspnea History of Present Illness: This is a 71 year old male with a history of COPD (on CPAP at night, denies using home O2), CAD s/p CABG, HTN, and BPH who presented to the ED complaining of 3 days of worsening dyspnea (now on minimal exertion), fever up to 102, and cough productive of yellow sputum. He has a historyof ADPKD buthas not seen a guardian family member for a long time. Has no problem urinating. Says his BP is well controlled. His sister is on hemeodialsis and so was his mother. - History Source History Provided By: Patient, Medical Record - Past Medical History Cardio/Vascular: Yes: CAD (s/p CABG), HTN, Hyperlipdemia Pulmonary: Yes: COPD Renal/: Yes: BPH, Other (PKD) - Past Surgical History Past Surgical History: Yes: CABG - Alcohol/Substance Use Hx Alcohol Use: Yes (RARE) History of Substance Use: reports: None - Smoking History Smoking history: Former smoker Have you smoked in the past 12 months: No Aproximately how many cigarettes per day: 0 If you are a former smoker, when did you quit?: 2013 - Social History ADL: Independent Home Medications - Allergies Allergies/Adverse Reactions: Allergies Allergy/AdvReac Type Severity Reaction Status Date / Time lisinopril Allergy Swelling Verified 11/07/16 13:50 cyclobenzaprine HCl AdvReac Vomiting Verified 11/07/16 13:50 [From Flexeril] oxycodone AdvReac Vomiting Verified 11/07/16 13:50 - Home Medications Home Medications: Ambulatory Orders Albuterol Sulfate Inhaler - [Ventolin HFA Inhaler -] 1 - 2 inh PO Q4H PRN Omeprazole [Prilosec (RX)] 40 mg PO DAILY 06/23/15 Amlodipine Besylate [Norvasc -] 5 mg PO DAILY #30 tablet 06/25/15 Atorvastatin Ca [Lipitor] 40 mg PO HS 11/07/16 Budesonide/Formeterol Fumarate [SYMBICORT 160/4.5mcg -] 1 inh PO BID 11/07/16 Diazepam 10 mg PO DAILY 11/07/16 Finasteride [Proscar -] 5 mg PO DAILY 11/07/16 Family Disease History - Family Disease History Family Disease History: Diabetes: Mother, Heart Disease: Mother, Other: Father ( of prostate cancer ) Review of Systems - Review of Systems Constitutional: reports: Fever Eyes: reports: No Symptoms HENT: reports: No Symptoms Neck: reports: No Symptoms Cardiovascular: reports: Chest Pain, Shortness of Breath Respiratory: reports: Cough, Exercise Intolerance, SOB Gastrointestinal: reports: No Symptoms Genitourinary: reports: No Symptoms Breasts: reports: No Symptoms Reported Musculoskeletal: reports: No Symptoms Integumentary: reports: No Symptoms Neurological: reports: No Symptoms Endocrine: reports: No Symptoms Hematology/Lymphatic: reports: No Symptoms Psychiatric: reports: No Symptoms Nephrology Consult - Height Height: 5 ft 4 in - Weight Weight: 128 lb - BMI Body Mass Index (BMI): 21.9 - Lab Results CBC,BMP: CBC, BMP 11/08/16 07:05 11/08/16 07:05 Anion Gap: Anion Gap Anion Gap 11 (8-16) 11/08/16 07:05 - Imaging Chest X-ray: Report Reviewed (right lower lobe pneumonia) - Physical Examination Vital Signs: Vital Signs Temperature 98.7 F 11/09/16 06:00 Pulse Rate 72 11/09/16 09:00 Respiratory Rate 22 11/09/16 09:00 Blood Pressure 128/68 11/09/16 09:00 O2 Sat by Pulse Oximetry (%) 95 11/09/16 10:40 Constitutional: Yes: Well Nourished, Mild Distress Eyes: Yes: Conjunctiva Clear HENT: Yes: Atraumatic, Normocephalic Neck: Yes: Supple, Trachea Midline Cardiovascular: Yes: Regular Rate and Rhythm Respiratory: Yes: Rhonchi, SOB Gastrointestinal: Yes: WNL Renal/: Yes: WNL Musculoskeletal: Yes: WNL Extremities: Yes: WNL Edema: No Peripheral Pulses WNL: Yes Integumentary: Yes: WNL Wound/Incision: Yes: Clean/Dry Neurological: Yes: Alert, Oriented Psychiatric: Yes: Alert, Oriented Assessment/Plan 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
[2016-11-09] MEDS: guaiFENesin/CODEINE 10 ML UNIT-DOSE CUPS PO PRN ×2 (15:12→21:28)
[2016-11-09 16:28] LABS: URINE APPEARANCE CLEAR; URINE BILIRUBIN NEGATIVE (NEGATIVE); URINE BLOOD NEGATIVE (NEGATIVE); URINE COLOR STRAW; URINE GLUCOSE (UA) 1+ (NEGATIVE); URINE KETONE NEGATIVE (NEGATIVE); URINE LEUK ESTERASE NEGATIVE (NEGATIVE); URINE NITRITE NEGATIVE (NEGATIVE); URINE PROTEIN NEGATIVE (NEGATIVE); URINE UROBILINOGEN NEGATIVE E.U./dl (0.2-1.0)
[2016-11-09] MEDS: ATORVASTATIN CA 40 MG TABLET (FP) PO SCH (21:28)
--- NOTE | 2016-11-09 22:04 | EKG ---
Test Reason : Blood Pressure : / mmHG Vent. Rate : 111 BPM Atrial Rate : 111 BPM P-R Int : 170 ms QRS Dur : 100 ms QT Int : 340 ms P-R-T Axes : 089 066 057 degrees QTc Int : 462 ms SINUS TACHYCARDIA LEFT ATRIAL ENLARGEMENT WHEN COMPARED WITH ECG OF 08-NOV-2013 10:36, PREMATURE VENTRICULAR COMPLEXES ARE NO LONGER PRESENT VENT. RATE HAS INCREASED BY 44 BPM Confirmed by RYLEE HA MD ([id number]) on 11/09/2016 10:04:12 PM Referred By: Confirmed By:RYLEE HA MD
[2016-11-09 22:52] LABS: URINE CREATININE 52.4 mg/dL
[2016-11-10] MEDS: methylPREDNISolone NA SUCC 40 MG/1 ML VIAL IVPB SCH ×3 (02:34→14:34)
[2016-11-10] MEDS: ALBUTEROL SO4 0.083% IH SOL 2.5 MG/3 ML VIAL.NEB. NEB SCH ×5 (05:00→22:30)
[2016-11-10] MEDS: DOCUSATE SODIUM 100 MG CAPSULE (FP) PO SCH ×3 (05:56→22:04)
[2016-11-10] MEDS ORDERED: PT OWN MED DRAWER 7, Y5N ONE ×4 (06:48→21:54)
[2016-11-10] MEDS: TIOTROPIUM BROMIDE 18 MCG/INH (DEVICE W/ 5 CAPSULES) IH SCH (09:09)
[2016-11-10] MEDS: BUDESONIDE/FORMETEROL FUMARATE 160/4.5 mcg INHALER IH SCH ×2 (09:09→22:05)
[2016-11-10] MEDS: guaiFENesin/CODEINE 10 ML UNIT-DOSE CUPS PO PRN ×2 (09:09→22:06)
[2016-11-10] MEDS: FINASTERIDE 5 MG TABLET (FP) PO SCH (09:10)
[2016-11-10] MEDS: HEPARIN NA (PORCINE) 5,000 UNITS/ML 1ML VIAL SQ SCH ×2 (09:10→22:04)
[2016-11-10] MEDS: amLODIPine BESYLATE 5 MG TABLET (FP) PO SCH (09:10)
[2016-11-10] MEDS: cefTRIAXone 1 GM/50 ML BAG (PRE-DOCKED) IVPB SCH (09:10)
--- NOTE | 2016-11-10 09:34 | PN ---
Teaching Attending Note Name of Resident: Mitra Spain ATTENDING PHYSICIAN STATEMENT I saw and evaluated the patient. I reviewed the resident's note and discussed the case with the resident. I agree with the resident's findings and plan as documented. Vital Signs Temperature 98.1 F 11/10/16 06:00 Pulse Rate 71 11/10/16 06:00 Respiratory Rate 18 11/10/16 06:00 Blood Pressure 136/86 11/10/16 06:00 O2 Sat by Pulse Oximetry (%) 95 11/10/16 06:51 CBCD WBC 15.6 K/mm3 (4.0-10.0) H 11/08/16 07:05 RBC 4.84 M/mm3 (4.00-5.60) 11/08/16 07:05 Hgb 15.3 GM/dL (11.7-16.9) 11/08/16 07:05 Hct 45.1 % (35.4-49) 11/08/16 07:05 MCV 93.2 fl (80-96) 11/08/16 07:05 MCHC 33.8 g/dl (32.0-35.9) 11/08/16 07:05 RDW 13.2 % (11.9-15.9) 11/08/16 07:05 Plt Count 196 K/MM3 (134-434) 11/08/16 07:05 MPV 8.9 fl (7.5-11.1) 11/08/16 07:05 CMP Sodium 142 mmol/L (136-145) 11/08/16 07:05 Potassium 4.6 mmol/L (3.5-5.1) 11/08/16 07:05 Chloride 104 mmol/L (98-107) 11/08/16 07:05 Carbon Dioxide 27 mmol/L (21-32) 11/08/16 07:05 Anion Gap 11 (8-16) 11/08/16 07:05 BUN 29 mg/dL (7-18) H D 11/08/16 07:05 Creatinine 1.5 mg/dL (0.7-1.3) H 11/08/16 07:05 Creat Clearance w eGFR 45.87 (>60) 11/08/16 07:05 Random Glucose 179 mg/dL (74-106) H D 11/08/16 07:05 Calcium 9.1 mg/dL (8.5-10.1) 11/08/16 07:05 Total Bilirubin 0.3 mg/dL (0.2-1.0) D 11/08/16 07:05 AST 14 U/L (15-37) L D 11/08/16 07:05 ALT 24 U/L (12-78) 11/08/16 07:05 Alkaline Phosphatase 95 U/L (45-117) 11/08/16 07:05 Total Protein 7.1 g/dl (6.4-8.2) 11/08/16 07:05 Albumin 3.7 g/dl (3.4-5.0) 11/08/16 07:05 CARDIAC ENZYMES Creatine Kinase 152 IU/L (39-308) D 11/07/16 13:45 Troponin I < 0.02 ng/ml (0.00-0.05) 11/07/16 13:45 Current Medications Generic Name Dose Route Start Last Admin Trade Name Freq PRN Reason Stop Dose Admin Acetaminophen 650 mg 11/07/16 16:02 11/07/16 16:23 Tylenol - PO 650 mg Q4H PRN Administration FEVER OR PAIN Albuterol Sulfate 1 amp 11/07/16 16:00 11/10/16 05:00 Ventolin 0.083% Nebulizer Soln - NEB 1 amp Q4H JONATHAN Administration Amlodipine Besylate 5 mg 11/08/16 10:00 11/10/16 09:10 Norvasc - PO 5 mg DAILY JONATHAN Administration Atorvastatin Calcium 40 mg 11/07/16 22:00 11/09/16 21:28 Lipitor - PO 40 mg HS JONATHAN Administration Benzocaine/Menthol 1 each 11/08/16 18:58 11/09/16 20:12 Cepacol Lozenge - MM 1 each Q4H PRN Administration SORE THROAT Budesonide/Formoterol Fumarate 1 puff 11/07/16 22:00 11/10/16 09:09 Symbicort 160/4.5mcg - IH 1 puff BID JONATHAN Administration Ceftriaxone Sodium 1 gm 11/08/16 10:00 11/10/16 09:10 Rocephin 1gm Ivpb (Pre-Docked) IVPB 1 gm DAILY JONATHAN Administration Docusate Sodium 100 mg 11/07/16 22:00 11/10/16 05:56 Colace - PO Not Given TID JONATHAN Finasteride 5 mg 11/08/16 10:00 11/10/16 09:10 Proscar - PO 5 mg DAILY JONATHAN Administration Guaifenesin/Codeine Phosphate 10 ml 11/09/16 12:52 11/10/16 09:09 Robitussin Ac - PO 10 ml Q6H PRN Administration COUGH Heparin Sodium (Porcine) 5,000 unit 11/09/16 10:00 11/10/16 09:10 Heparin - SQ 5,000 unit BID JONATHAN Administration Azithromycin 250 mg/ Dextrose 250 mls @ 250 mls/hr 11/08/16 10:00 11/09/16 12: 40 IVPB 250 mls/hr DAILY JONATHAN Administration Methylprednisolone Sodium Succinate 40 mg 11/09/16 12:51 11/10/16 09:10 Solu-Medrol - IVPB 40 mg Q6H-IV JONATHAN Administration Ondansetron HCl 4 mg 11/07/16 16:02 Zofran Injection IVPB Q6H PRN NAUSEA Tiotropium [place] 1 puff 11/08/16 10:00 11/10/16 09:09 Spiriva - IH 1 inh DAILY JONATHAN Administration Home Medications Medication Instructions Recorded Albuterol Sulfate Inhaler - 1 - 2 inh PO Q4H PRN 06/23/15 [Ventolin HFA Inhaler -] Omeprazole [Prilosec (RX)] 40 mg PO DAILY 06/23/15 Amlodipine Besylate [Norvasc -] 5 mg PO DAILY #30 tablet 06/25/15 Atorvastatin Ca [Lipitor] 40 mg PO HS 11/07/16 Budesonide/Formeterol Fumarate 1 inh PO BID 11/07/16 [SYMBICORT 160/4.5mcg -] Diazepam 10 mg PO DAILY 11/07/16 Finasteride [Proscar -] 5 mg PO DAILY 11/07/16 ASSESSMENT AND PLAN: 71 year old male admitted with COPD exacerbation and pneumonia. # Acute COPD exacerbation ;O2 2L via nc;continue Bipap at night;Continue Symbicort ,Spiriva, Albuterol nebs q4h standing while awake -Solu-Medrol 60mg IVPB q6h, taper as tolerated starting am; Pulmonary consult appreciated, Continue Zithromax and Rocephin IV # Acute on chronic respiratory failure with hypoxemia due to COPD exacerbation and Pneumonia # Acute Pneumonia Continue Ceftriaxone/Azithromycin for CAP;Follow up blood cultures; Obtain sputum culture, urine antigens -Check flu swab # Acute Renal Failure Avoid nephrotoxic meds, monitor level daily # Hypertension Continue home Norvasc DVT prophylaxis: Heparin 5000 units sq tid; Ambulation when respiratory status improves
--- NOTE | 2016-11-10 09:41 | PN ---
Physical Exam: SUBJECTIVE: Patient seen and examined. the cough syrup works when it is given, slept okay. experienced a coughing fit this afternoon that improved with cough syrup. OBJECTIVE: Vital Signs Period Temp Pulse Resp BP Sys/Velázquez Pulse Ox Last 24 Hr 97.3 F-98.2 F 66-71 18-22 128-136/60-86 95-95 GENERAL: The patient is awake, alert, and fully oriented, in no acute distress. EYES: extraocular movements intact ENT: nares patent, oropharynx clear without exudates, moist mucous membranes. NECK: Trachea midline, full range of motion, supple. LUNGS: expiratory wheezing throughout b/l with scattered rhonchi HEART: Regular rate and rhythm, S1, S2 without murmur, rub or gallop. ABDOMEN: Soft, nontender, nondistended, normoactive bowel sounds EXTREMITIES: 2+ pulses, warm, well-perfused, no edema. Laboratory Results - last 24 hr 11/09/16 11/09/16 15:35 15:35 Urine Color Straw Urine Appearance Clear Urine pH 6.0 Ur Specific [place] 1.009 Urine Protein Negative Urine Glucose (UA) 1+ H Urine Ketones Negative Urine Blood Negative Urine Nitrite Negative Urine Bilirubin Negative Urine Urobilinogen Negative Ur Leukocyte Esterase Negative U Random Total Protein 14 H Urine Creatinine 52.4 Protein/Creatinin Ratio 0.26 Active Medications Active Medications Acetaminophen (Tylenol -) 650 mg PO Q4H PRN PRN Reason: FEVER OR PAIN Last Admin: 11/07/16 16:23 Dose: 650 mg Albuterol Sulfate (Ventolin 0.083% Nebulizer Soln -) 1 amp NEB Q4H [facility] Last Admin: 11/10/16 15:00 Dose: 1 amp Amlodipine Besylate (Norvasc -) 5 mg PO DAILY [facility] Last Admin: 11/10/16 09:10 Dose: 5 mg Atorvastatin Calcium (Lipitor -) 40 mg PO HS [facility] Last Admin: 11/09/16 21:28 Dose: 40 mg Benzocaine/Menthol (Cepacol Lozenge -) 1 each MM Q4H PRN PRN Reason: SORE THROAT Last Admin: 11/09/16 20:12 Dose: 1 each Budesonide/Formoterol Fumarate (Symbicort 160/4.5mcg -) 1 puff IH BID [facility] Last Admin: 11/10/16 09:09 Dose: 1 puff Ceftriaxone Sodium (Rocephin 1gm Ivpb (Pre-Docked)) 1 gm IVPB DAILY [facility] Last Admin: 11/10/16 09:10 Dose: 1 gm Docusate Sodium (Colace -) 100 mg PO TID [facility] Last Admin: 11/10/16 13:43 Dose: Not Given Finasteride (Proscar -) 5 mg PO DAILY [facility] Last Admin: 11/10/16 09:10 Dose: 5 mg Guaifenesin/Codeine Phosphate (Robitussin Ac -) 10 ml PO Q6H PRN PRN Reason: COUGH Last Admin: 11/10/16 09:09 Dose: 10 ml Heparin Sodium (Porcine) (Heparin -) 5,000 unit SQ BID [facility] Last Admin: 11/10/16 09:10 Dose: 5,000 unit Azithromycin 250 mg/ Dextrose 250 mls @ 250 mls/hr IVPB DAILY [facility] Last Admin: 11/10/16 10:38 Dose: 250 mls/hr Methylprednisolone Sodium Succinate (Solu-Medrol -) 40 mg IVPB Q8H-IV SERGE Ondansetron HCl (Zofran Injection) 4 mg IVPB Q6H PRN PRN Reason: NAUSEA Tiotropium [place] (Spiriva -) 1 puff IH DAILY [facility] Last Admin: 11/10/16 09:09 Dose: 1 inh ASSESSMENT/PLAN: 71 yr old man with COPD, CAD s/p CABG, HTN, BPH presented with worsening dyspnea admitted for CAP with copd exacerbation. #community acquire pnuemonia/acute COPD exacerbation, acute on chronic respiratory failure - azithromycin 250ivpb daily -- start 3/4 - rocephin 1gm ivpb daily -- start 3/4 - ventolin q4 serge, symbicort bid, spiriva daily - solumedrol 40mg ivpb q8hr, start to taper down - robutussion AC 10ml po q6hr, cepacol lozenge q4hr - bld cx NGTD - flu and legionella negative #TAVO (baseline 1.2) - monitor renal fx - avoid nephrotoxic medications # HTN Norvasc #HLd - lipitor #Diet: regular #DVT: Heparin 5000 units sq tid Visit type - Emergency Visit Emergency Visit: No - New Patient This patient is new to me today: No - Critical Care Critical Care patient: No
[2016-11-10] MEDS: AZITHROMYCIN IVPB 250 MG in DEXTROSE 5%-WATER - 250 ML IVPB SCH (10:38)
--- NOTE | 2016-11-10 13:54 | PN ---
Progress Note, Physician History of Present Illness: Pt seen and examined at bedside. He complains of shortness of breath with ambulation. He still requires oxygen at rest. - Current Medication List Current Medications: Active Medications Acetaminophen (Tylenol -) 650 mg PO Q4H PRN PRN Reason: FEVER OR PAIN Last Admin: 11/07/16 16:23 Dose: 650 mg Albuterol Sulfate (Ventolin 0.083% Nebulizer Soln -) 1 amp NEB Q4H JONATHAN Last Admin: 11/10/16 11:03 Dose: 1 amp Amlodipine Besylate (Norvasc -) 5 mg PO DAILY JONATHAN Last Admin: 11/10/16 09:10 Dose: 5 mg Atorvastatin Calcium (Lipitor -) 40 mg PO HS [facility] Last Admin: 11/09/16 21:28 Dose: 40 mg Benzocaine/Menthol (Cepacol Lozenge -) 1 each MM Q4H PRN PRN Reason: SORE THROAT Last Admin: 11/09/16 20:12 Dose: 1 each Budesonide/Formoterol Fumarate (Symbicort 160/4.5mcg -) 1 puff IH BID [facility] Last Admin: 11/10/16 09:09 Dose: 1 puff Ceftriaxone Sodium (Rocephin 1gm Ivpb (Pre-Docked)) 1 gm IVPB DAILY [facility] Last Admin: 11/10/16 09:10 Dose: 1 gm Docusate Sodium (Colace -) 100 mg PO TID [facility] Last Admin: 11/10/16 13:43 Dose: Not Given Finasteride (Proscar -) 5 mg PO DAILY [facility] Last Admin: 11/10/16 09:10 Dose: 5 mg Guaifenesin/Codeine Phosphate (Robitussin Ac -) 10 ml PO Q6H PRN PRN Reason: COUGH Last Admin: 11/10/16 09:09 Dose: 10 ml Heparin Sodium (Porcine) (Heparin -) 5,000 unit SQ BID [facility] Last Admin: 11/10/16 09:10 Dose: 5,000 unit Azithromycin 250 mg/ Dextrose 250 mls @ 250 mls/hr IVPB DAILY [facility] Last Admin: 11/10/16 10:38 Dose: 250 mls/hr Methylprednisolone Sodium Succinate (Solu-Medrol -) 40 mg IVPB Q6H-IV JONATHAN Last Admin: 11/10/16 09:10 Dose: 40 mg Ondansetron HCl (Zofran Injection) 4 mg IVPB Q6H PRN PRN Reason: NAUSEA Tiotropium [place] (Spiriva -) 1 puff IH DAILY JONATHAN Last Admin: 11/10/16 09:09 Dose: 1 inh - Objective Vital Signs: Vital Signs Temperature 96.4 F L 11/10/16 10:00 Pulse Rate 63 11/10/16 11:03 Respiratory Rate 18 11/10/16 10:00 Blood Pressure 135/72 11/10/16 10:00 O2 Sat by Pulse Oximetry (%) 96 11/10/16 11:03 Constitutional: Yes: Calm Eyes: Yes: Conjunctiva Clear HENT: Yes: Atraumatic Neck: Yes: Supple Cardiovascular: Yes: S1, S2 Respiratory: Yes: On Nasal O2, Wheezes Gastrointestinal: Yes: Normal Bowel Sounds, Soft Genitourinary: Yes: WNL Musculoskeletal: Yes: WNL Edema: No Neurological: Yes: Oriented Psychiatric: Yes: Oriented Labs: CBC, BMP 11/08/16 07:05 11/08/16 07:05 Assessment/Plan Current Medications Generic Name Dose Route Start Last Admin Trade Name Freq PRN Reason Stop Dose Admin Acetaminophen 650 mg 11/07/16 16:02 11/07/16 16:23 Tylenol - PO 650 mg Q4H PRN Administration FEVER OR PAIN Albuterol Sulfate 1 amp 11/07/16 16:00 11/10/16 11:03 Ventolin 0.083% Nebulizer Soln - NEB 1 amp Q4H JONATHAN Administration Amlodipine Besylate 5 mg 11/08/16 10:00 11/10/16 09:10 Norvasc - PO 5 mg DAILY JONATHAN Administration Atorvastatin Calcium 40 mg 11/07/16 22:00 11/09/16 21:28 Lipitor - PO 40 mg HS JONATHAN Administration Benzocaine/Menthol 1 each 11/08/16 18:58 11/09/16 20:12 Cepacol Lozenge - MM 1 each Q4H PRN Administration SORE THROAT Budesonide/Formoterol Fumarate 1 puff 11/07/16 22:00 11/10/16 09:09 Symbicort 160/4.5mcg - IH 1 puff BID JONATHAN Administration Ceftriaxone Sodium 1 gm 11/08/16 10:00 11/10/16 09:10 Rocephin 1gm Ivpb (Pre-Docked) IVPB 1 gm DAILY JONATHAN Administration Docusate Sodium 100 mg 11/07/16 22:00 11/10/16 13:43 Colace - PO Not Given TID JONATHAN Finasteride 5 mg 11/08/16 10:00 11/10/16 09:10 Proscar - PO 5 mg DAILY JONATHAN Administration Guaifenesin/Codeine Phosphate 10 ml 11/09/16 12:52 11/10/16 09:09 Robitussin Ac - PO 10 ml Q6H PRN Administration COUGH Heparin Sodium (Porcine) 5,000 unit 11/09/16 10:00 11/10/16 09:10 Heparin - SQ 5,000 unit BID JONATHAN Administration Azithromycin 250 mg/ Dextrose 250 mls @ 250 mls/hr 11/08/16 10:00 11/10/16 10: 38 IVPB 250 mls/hr DAILY JONATHAN Administration Methylprednisolone Sodium Succinate 40 mg 11/09/16 12:51 11/10/16 09:10 Solu-Medrol - IVPB 40 mg Q6H-IV JONATHAN Administration Ondansetron HCl 4 mg 11/07/16 16:02 Zofran Injection IVPB Q6H PRN NAUSEA Tiotropium [place] 1 puff 11/08/16 10:00 11/10/16 09:09 Spiriva - IH 1 inh DAILY JONATHAN Administration Impression 1. ADPKD 2. CKD 3. COPD exacerbation 4. PNA 5. HTN 6. CABG Plan - cont current meds - will see pt in office - recommend blood pressure control - can increase norvasc to 10 mg if bp is elevated - steroids with taper as tolerated - will follow
[2016-11-10] MEDS ORDERED: guaiFENesin/CODEINE 10 ML UNIT-DOSE CUPS PO ONE (14:30)
--- NOTE | 2016-11-10 16:43 | PN ---
Progress Note (short form) - Note Progress Note: PULMONARY States breathing is better today. +nonproductive cough and wheezing but chest feels looser. Last Vital Signs Temp Pulse Resp BP Pulse Ox 98.1 F 84 20 135/66 96 11/10/16 14:00 11/10/16 14:00 11/10/16 14:00 11/10/16 14:00 11/10/16 11:03 Gen: NAD at rest Heart: RRR Lung: bilateral scattered wheezes, rhonchi Abd: soft, nontender Ext: no edema CBC, BMP 11/08/16 07:05 11/08/16 07:05 Active Medications Acetaminophen (Tylenol -) 650 mg PO Q4H PRN PRN Reason: FEVER OR PAIN Last Admin: 11/07/16 16:23 Dose: 650 mg Albuterol Sulfate (Ventolin 0.083% Nebulizer Soln -) 1 amp NEB Q4H [facility] Last Admin: 11/10/16 15:00 Dose: 1 amp Amlodipine Besylate (Norvasc -) 5 mg PO DAILY [facility] Last Admin: 11/10/16 09:10 Dose: 5 mg Atorvastatin Calcium (Lipitor -) 40 mg PO HS [facility] Last Admin: 11/09/16 21:28 Dose: 40 mg Benzocaine/Menthol (Cepacol Lozenge -) 1 each MM Q4H PRN PRN Reason: SORE THROAT Last Admin: 11/09/16 20:12 Dose: 1 each Budesonide/Formoterol Fumarate (Symbicort 160/4.5mcg -) 1 puff IH BID [facility] Last Admin: 11/10/16 09:09 Dose: 1 puff Ceftriaxone Sodium (Rocephin 1gm Ivpb (Pre-Docked)) 1 gm IVPB DAILY [facility] Last Admin: 11/10/16 09:10 Dose: 1 gm Docusate Sodium (Colace -) 100 mg PO TID [facility] Last Admin: 11/10/16 13:43 Dose: Not Given Finasteride (Proscar -) 5 mg PO DAILY [facility] Last Admin: 11/10/16 09:10 Dose: 5 mg Guaifenesin/Codeine Phosphate (Robitussin Ac -) 10 ml PO Q6H PRN PRN Reason: COUGH Last Admin: 11/10/16 09:09 Dose: 10 ml Heparin Sodium (Porcine) (Heparin -) 5,000 unit SQ BID [facility] Last Admin: 11/10/16 09:10 Dose: 5,000 unit Azithromycin 250 mg/ Dextrose 250 mls @ 250 mls/hr IVPB DAILY [facility] Last Admin: 11/10/16 10:38 Dose: 250 mls/hr Methylprednisolone Sodium Succinate (Solu-Medrol -) 40 mg IVPB Q6H-IV [facility] Last Admin: 11/10/16 14:34 Dose: 40 mg Ondansetron HCl (Zofran Injection) 4 mg IVPB Q6H PRN PRN Reason: NAUSEA Tiotropium [place] (Spiriva -) 1 puff IH DAILY [facility] Last Admin: 11/10/16 09:09 Dose: 1 inh A/P Acute on Chronic Hypoxic Respiratory Failure Pneumonia Acute COPD Exacerbation KATE HTN - will decrease medrol to q8h dosing - inhaled bronchodilators - O2 to keep SpO2 >90% - BiPAP at night - continue antibiotics - DVT prophylaxis
[2016-11-10] MEDS: ATORVASTATIN CA 40 MG TABLET (FP) PO SCH (22:05)
[2016-11-10] MEDS: BENZOCAINE/MENTH/CETYLPYRD CL 1 EACH LOZENGE MM PRN (22:05)
[2016-11-11] MEDS: methylPREDNISolone NA SUCC 40 MG/1 ML VIAL IVPB SCH ×2 (01:30→09:11)
[2016-11-11] MEDS: ALBUTEROL SO4 0.083% IH SOL 2.5 MG/3 ML VIAL.NEB. NEB SCH ×4 (02:00→10:38)
[2016-11-11] MEDS: DOCUSATE SODIUM 100 MG CAPSULE (FP) PO SCH (06:34)
[2016-11-11] MEDS ORDERED: PT OWN MED DRAWER 7, Y5N ONE ×2 (06:42→08:43)
[2016-11-11] MEDS: guaiFENesin/CODEINE 10 ML UNIT-DOSE CUPS PO PRN ×2 (06:43→12:49)
[2016-11-11] MEDS: BENZOCAINE/MENTH/CETYLPYRD CL 1 EACH LOZENGE MM PRN ×2 (06:43→10:20)
[2016-11-11] MEDS: FINASTERIDE 5 MG TABLET (FP) PO SCH (09:10)
[2016-11-11] MEDS: amLODIPine BESYLATE 5 MG TABLET (FP) PO SCH (09:10)
[2016-11-11] MEDS: cefTRIAXone 1 GM/50 ML BAG (PRE-DOCKED) IVPB SCH (09:10)
[2016-11-11] MEDS: HEPARIN NA (PORCINE) 5,000 UNITS/ML 1ML VIAL SQ SCH (09:10)
[2016-11-11] MEDS: BUDESONIDE/FORMETEROL FUMARATE 160/4.5 mcg INHALER IH SCH (09:10)
[2016-11-11] MEDS: TIOTROPIUM BROMIDE 18 MCG/INH (DEVICE W/ 5 CAPSULES) IH SCH (09:11)
[2016-11-11] MEDS: AZITHROMYCIN IVPB 250 MG in DEXTROSE 5%-WATER - 250 ML IVPB SCH (09:29)
--- NOTE | 2016-11-11 09:58 | MSN ---
Progress Note (short form) - Note Progress Note: SUBJECTIVE: Pt seen and examined at bedside this morning. VALERIA overnight. No complaints this morning. Pt states he feels much better since admission. Pt admits to persistent nonproductive cough that is the same in frequency and intensity as yesterday. His loose BM have stopped this morning and he reports having a more firm BM today. Denies fevers/chills/CP/SOB/N/V/D/C/abdominal pain. Active Medications Generic Name Dose Route Start Last Admin Trade Name Freq PRN Reason Stop Dose Admin Acetaminophen 650 mg 11/07/16 16:02 11/07/16 16:23 Tylenol - PO 650 mg Q4H PRN Administration FEVER OR PAIN Albuterol Sulfate 1 amp 11/11/16 02:00 11/11/16 06:40 Ventolin 0.083% Nebulizer Soln - NEB 1 amp Q4HPO JONATHAN Administration Amlodipine Besylate 5 mg 11/08/16 10:00 11/11/16 09:10 Norvasc - PO 5 mg DAILY JONATHAN Administration Atorvastatin Calcium 40 mg 11/07/16 22:00 11/10/16 22:05 Lipitor - PO 40 mg HS JONATHAN Administration Benzocaine/Menthol 1 each 11/08/16 18:58 11/11/16 06:43 Cepacol Lozenge - MM 1 each Q4H PRN Administration SORE THROAT Budesonide/Formoterol Fumarate 1 puff 11/07/16 22:00 11/11/16 09:10 Symbicort 160/4.5mcg - IH 1 puff BID JONATHAN Administration Ceftriaxone Sodium 1 gm 11/08/16 10:00 11/11/16 09:10 Rocephin 1gm Ivpb (Pre-Docked) IVPB 1 gm DAILY JONATHAN Administration Docusate Sodium 100 mg 11/07/16 22:00 11/11/16 06:34 Colace - PO Not Given TID JONATHAN Finasteride 5 mg 11/08/16 10:00 11/11/16 09:10 Proscar - PO 5 mg DAILY JONATHAN Administration Guaifenesin/Codeine Phosphate 10 ml 11/09/16 12:52 11/11/16 06:43 Robitussin Ac - PO 10 ml Q6H PRN Administration COUGH Heparin Sodium (Porcine) 5,000 unit 11/09/16 10:00 11/11/16 09:10 Heparin - SQ 5,000 unit BID JONATHAN Administration Azithromycin 250 mg/ Dextrose 250 mls @ 250 mls/hr 11/08/16 10:00 11/11/16 09: 29 IVPB 250 mls/hr DAILY JONATHAN Administration Methylprednisolone Sodium Succinate 40 mg 11/11/16 02:00 11/11/16 09:11 Solu-Medrol - IVPB 40 mg Q8H-IV JONATHAN Administration Ondansetron HCl 4 mg 11/07/16 16:02 Zofran Injection IVPB Q6H PRN NAUSEA Tiotropium [place] 1 puff 11/08/16 10:00 11/11/16 09:11 Spiriva - IH 1 inh DAILY JONATHAN Administration OBJECTIVE: Vital Signs Period Temp Pulse Resp BP Sys/Velázquez Pulse Ox Last 24 Hr 96.4 F-98.7 F 63-86 18-20 135-147/66-88 95-96 GENERAL: AAOx3 in NAD on 3L NC O2. PERRLA NECK: Negative JVD. Trachea midline. Supple without LAD HEART: RRR with distant heart sounds. Unable to make out S1/S2 LUNGS: Diffuse rhonchi heard BL on expiration. Negative crackles ABDOMEN: Soft, non tender to palpation. Hyperactive bowel sounds EXTREMITIES: No edema CBC, BMP 11/08/16 07:05 11/08/16 07:05 A/P: Pt is a 71 yo M with a PMHx of COPD, CAD s/p CABG, HTN, HLD, and adult PKD , who presented to the ED on 11/07/16 with SOB x3 days, a fever of 102F, coughing , and wheezing. Pt was admitted for acute exacerbation of COPD with CAP. 1. Acute exacerbation of COPD -Improving -Pulmonary consult appreciated -SoluMedrol tapered to 40mg IV Q8H -Ventolin, Symbicort, and Spiriva -Robitussin 10ml PO Q6H prn and Cepacol lozenge Q4H prn for cough 2. CAP -Improving -Blood Cx NGTD -Rocephin 1gm IV daily (Day 4) -Azithromycin 250mg (Day 4) -CXR (11/10/16): improved compared to 11/07/16. No acute pathology, RLL infiltrate not noted. Decreased lung markings BL 3. TAVO -Stable -Cr of 1.5 on admission. Baseline 1.2 -Avoid nephrotoxins -Renal consult appreciated. Pt to FU with Dr. Underwood outpatient 4. HTN -Stable -Norvasc 5mg PO daily 5. HLD -Lipitor 40mg PO HS 6. BPH -Proscar 5mg PO daily 7. Diet -Regular diet 8. DVT ppx -Heparin 5000U SQ BID 9. Dispo -Pt to be discharged home this afternoon. States he will have family pick him up upon discharge -Steroid taper, ABX, and Cough syrup upon discharge -FU outpatient with Dr. Payne, Dr. Underwood, and PMD Saul Mendoza, MS3
[2016-11-11 11:56] VITALS: BP 151/88; PULSE 74; TEMP 97.9
--- NOTE | 2016-11-11 12:06 | PN ---
Teaching Attending Note Name of Resident: Maggie Shea ATTENDING PHYSICIAN STATEMENT I saw and evaluated the patient. I reviewed the resident's note and discussed the case with the resident. I agree with the resident's findings and plan as documented. Vital Signs Temperature 97.9 F 11/11/16 10:00 Pulse Rate 74 11/11/16 10:00 Respiratory Rate 20 11/11/16 10:00 Blood Pressure 151/88 11/11/16 10:00 O2 Sat by Pulse Oximetry (%) 97 11/11/16 10:15 CBCD WBC 15.6 K/mm3 (4.0-10.0) H 11/08/16 07:05 RBC 4.84 M/mm3 (4.00-5.60) 11/08/16 07:05 Hgb 15.3 GM/dL (11.7-16.9) 11/08/16 07:05 Hct 45.1 % (35.4-49) 11/08/16 07:05 MCV 93.2 fl (80-96) 11/08/16 07:05 MCHC 33.8 g/dl (32.0-35.9) 11/08/16 07:05 RDW 13.2 % (11.9-15.9) 11/08/16 07:05 Plt Count 196 K/MM3 (134-434) 11/08/16 07:05 MPV 8.9 fl (7.5-11.1) 11/08/16 07:05 CMP Sodium 142 mmol/L (136-145) 11/08/16 07:05 Potassium 4.6 mmol/L (3.5-5.1) 11/08/16 07:05 Chloride 104 mmol/L (98-107) 11/08/16 07:05 Carbon Dioxide 27 mmol/L (21-32) 11/08/16 07:05 Anion Gap 11 (8-16) 11/08/16 07:05 BUN 29 mg/dL (7-18) H D 11/08/16 07:05 Creatinine 1.5 mg/dL (0.7-1.3) H 11/08/16 07:05 Creat Clearance w eGFR 45.87 (>60) 11/08/16 07:05 Random Glucose 179 mg/dL (74-106) H D 11/08/16 07:05 Calcium 9.1 mg/dL (8.5-10.1) 11/08/16 07:05 Total Bilirubin 0.3 mg/dL (0.2-1.0) D 11/08/16 07:05 AST 14 U/L (15-37) L D 11/08/16 07:05 ALT 24 U/L (12-78) 11/08/16 07:05 Alkaline Phosphatase 95 U/L (45-117) 11/08/16 07:05 Total Protein 7.1 g/dl (6.4-8.2) 11/08/16 07:05 Albumin 3.7 g/dl (3.4-5.0) 11/08/16 07:05 CARDIAC ENZYMES Creatine Kinase 152 IU/L (39-308) D 11/07/16 13:45 Troponin I < 0.02 ng/ml (0.00-0.05) 11/07/16 13:45 Current Medications Generic Name Dose Route Start Last Admin Trade Name Freq PRN Reason Stop Dose Admin Acetaminophen 650 mg 11/07/16 16:02 11/07/16 16:23 Tylenol - PO 650 mg Q4H PRN Administration FEVER OR PAIN Albuterol Sulfate 1 amp 11/11/16 02:00 11/11/16 10:15 Ventolin 0.083% Nebulizer Soln - NEB 1 amp Q4HPO JONATHAN Administration Amlodipine Besylate 5 mg 11/08/16 10:00 11/11/16 09:10 Norvasc - PO 5 mg DAILY JONATHAN Administration Atorvastatin Calcium 40 mg 11/07/16 22:00 11/10/16 22:05 Lipitor - PO 40 mg HS JONATHAN Administration Benzocaine/Menthol 1 each 11/08/16 18:58 11/11/16 10:20 Cepacol Lozenge - MM 1 each Q4H PRN Administration SORE THROAT Budesonide/Formoterol Fumarate 1 puff 11/07/16 22:00 11/11/16 09:10 Symbicort 160/4.5mcg - IH 1 puff BID JONATHAN Administration Ceftriaxone Sodium 1 gm 11/08/16 10:00 11/11/16 09:10 Rocephin 1gm Ivpb (Pre-Docked) IVPB 1 gm DAILY JONATHAN Administration Docusate Sodium 100 mg 11/07/16 22:00 11/11/16 06:34 Colace - PO Not Given TID JONATHAN Finasteride 5 mg 11/08/16 10:00 11/11/16 09:10 Proscar - PO 5 mg DAILY JONATHAN Administration Guaifenesin/Codeine Phosphate 10 ml 11/09/16 12:52 11/11/16 06:43 Robitussin Ac - PO 10 ml Q6H PRN Administration COUGH Heparin Sodium (Porcine) 5,000 unit 11/09/16 10:00 11/11/16 09:10 Heparin - SQ 5,000 unit BID JONATHAN Administration Azithromycin 250 mg/ Dextrose 250 mls @ 250 mls/hr 11/08/16 10:00 11/11/16 09: 29 IVPB 250 mls/hr DAILY JONATHAN Administration Methylprednisolone Sodium Succinate 40 mg 11/11/16 02:00 11/11/16 09:11 Solu-Medrol - IVPB 40 mg Q8H-IV JONATHAN Administration Ondansetron HCl 4 mg 11/07/16 16:02 Zofran Injection IVPB Q6H PRN NAUSEA Tiotropium [place] 1 puff 11/08/16 10:00 11/11/16 09:11 Spiriva - IH 1 inh DAILY JONATHAN Administration Home Medications Medication Instructions Recorded Albuterol Sulfate Inhaler - 1 - 2 inh PO Q4H PRN 06/23/15 [Ventolin HFA Inhaler -] Omeprazole [Prilosec (RX)] 40 mg PO DAILY 06/23/15 Amlodipine Besylate [Norvasc -] 5 mg PO DAILY #30 tablet 06/25/15 Atorvastatin Ca [Lipitor] 40 mg PO HS 11/07/16 Budesonide/Formeterol Fumarate 1 inh PO BID 11/07/16 [SYMBICORT 160/4.5mcg -] Diazepam 10 mg PO DAILY 11/07/16 Finasteride [Proscar -] 5 mg PO DAILY 11/07/16 ASSESSMENT AND PLAN: 71 year old male admitted with COPD exacerbation and pneumonia. # Acute COPD exacerbation ;O2 2L via nc;continue Bipap at night;Continue Symbicort ,Spiriva, Albuterol nebs q4h standing while awake -Solu-Medrol 60mg IVPB q6h, taper as tolerated starting am; Pulmonary consult appreciated, Continue Zithromax and Rocephin IV # Acute on chronic respiratory failure with hypoxemia due to COPD exacerbation and Pneumonia # Acute Pneumonia Continue Ceftriaxone/Azithromycin for CAP;Follow up blood cultures; Obtain sputum culture, urine antigens -Check flu swab # Acute Renal Failure Avoid nephrotoxic meds, monitor level daily # Hypertension Continue home Norvasc DVT prophylaxis: Heparin 5000 units sq tid; Ambulation when respiratory status improves
--- NOTE | 2016-11-11 12:21 | PN ---
Teaching Attending Note Name of Resident: Mitra Spain ATTENDING PHYSICIAN STATEMENT I saw and evaluated the patient. I reviewed the resident's note and discussed the case with the resident. I agree with the resident's findings and plan as documented. Patient is feeling better. wants to go home. Vital Signs Temperature 97.9 F 11/11/16 10:00 Pulse Rate 74 11/11/16 10:00 Respiratory Rate 20 11/11/16 10:00 Blood Pressure 151/88 11/11/16 10:00 O2 Sat by Pulse Oximetry (%) 97 11/11/16 10:15 CBCD WBC 15.6 K/mm3 (4.0-10.0) H 11/08/16 07:05 RBC 4.84 M/mm3 (4.00-5.60) 11/08/16 07:05 Hgb 15.3 GM/dL (11.7-16.9) 11/08/16 07:05 Hct 45.1 % (35.4-49) 11/08/16 07:05 MCV 93.2 fl (80-96) 11/08/16 07:05 MCHC 33.8 g/dl (32.0-35.9) 11/08/16 07:05 RDW 13.2 % (11.9-15.9) 11/08/16 07:05 Plt Count 196 K/MM3 (134-434) 11/08/16 07:05 MPV 8.9 fl (7.5-11.1) 11/08/16 07:05 CMP Sodium 142 mmol/L (136-145) 11/08/16 07:05 Potassium 4.6 mmol/L (3.5-5.1) 11/08/16 07:05 Chloride 104 mmol/L (98-107) 11/08/16 07:05 Carbon Dioxide 27 mmol/L (21-32) 11/08/16 07:05 Anion Gap 11 (8-16) 11/08/16 07:05 BUN 29 mg/dL (7-18) H D 11/08/16 07:05 Creatinine 1.5 mg/dL (0.7-1.3) H 11/08/16 07:05 Creat Clearance w eGFR 45.87 (>60) 11/08/16 07:05 Random Glucose 179 mg/dL (74-106) H D 11/08/16 07:05 Calcium 9.1 mg/dL (8.5-10.1) 11/08/16 07:05 Total Bilirubin 0.3 mg/dL (0.2-1.0) D 11/08/16 07:05 AST 14 U/L (15-37) L D 11/08/16 07:05 ALT 24 U/L (12-78) 11/08/16 07:05 Alkaline Phosphatase 95 U/L (45-117) 11/08/16 07:05 Total Protein 7.1 g/dl (6.4-8.2) 11/08/16 07:05 Albumin 3.7 g/dl (3.4-5.0) 11/08/16 07:05 CARDIAC ENZYMES Creatine Kinase 152 IU/L (39-308) D 11/07/16 13:45 Troponin I < 0.02 ng/ml (0.00-0.05) 11/07/16 13:45 Current Medications Generic Name Dose Route Start Last Admin Trade Name Freq PRN Reason Stop Dose Admin Acetaminophen 650 mg 11/07/16 16:02 11/07/16 16:23 Tylenol - PO 650 mg Q4H PRN Administration FEVER OR PAIN Albuterol Sulfate 1 amp 11/11/16 02:00 11/11/16 10:15 Ventolin 0.083% Nebulizer Soln - NEB 1 amp Q4HPO JONATHAN Administration Amlodipine Besylate 5 mg 11/08/16 10:00 11/11/16 09:10 Norvasc - PO 5 mg DAILY JONATHAN Administration Atorvastatin Calcium 40 mg 11/07/16 22:00 11/10/16 22:05 Lipitor - PO 40 mg HS JONATHAN Administration Benzocaine/Menthol 1 each 11/08/16 18:58 11/11/16 10:20 Cepacol Lozenge - MM 1 each Q4H PRN Administration SORE THROAT Budesonide/Formoterol Fumarate 1 puff 11/07/16 22:00 11/11/16 09:10 Symbicort 160/4.5mcg - IH 1 puff BID JONATHAN Administration Ceftriaxone Sodium 1 gm 11/08/16 10:00 11/11/16 09:10 Rocephin 1gm Ivpb (Pre-Docked) IVPB 1 gm DAILY JONATHAN Administration Docusate Sodium 100 mg 11/07/16 22:00 11/11/16 06:34 Colace - PO Not Given TID JONATHAN Finasteride 5 mg 11/08/16 10:00 11/11/16 09:10 Proscar - PO 5 mg DAILY JONATHAN Administration Guaifenesin/Codeine Phosphate 10 ml 11/09/16 12:52 11/11/16 06:43 Robitussin Ac - PO 10 ml Q6H PRN Administration COUGH Heparin Sodium (Porcine) 5,000 unit 11/09/16 10:00 11/11/16 09:10 Heparin - SQ 5,000 unit BID JONATHAN Administration Azithromycin 250 mg/ Dextrose 250 mls @ 250 mls/hr 11/08/16 10:00 11/11/16 09: 29 IVPB 250 mls/hr DAILY JONATHAN Administration Methylprednisolone Sodium Succinate 40 mg 11/11/16 02:00 11/11/16 09:11 Solu-Medrol - IVPB 40 mg Q8H-IV JONATHAN Administration Ondansetron HCl 4 mg 11/07/16 16:02 Zofran Injection IVPB Q6H PRN NAUSEA Tiotropium [place] 1 puff 11/08/16 10:00 11/11/16 09:11 Spiriva - IH 1 inh DAILY JONATHAN Administration Home Medications Medication Instructions Recorded Albuterol Sulfate Inhaler - 1 - 2 inh PO Q4H PRN 06/23/15 [Ventolin HFA Inhaler -] Omeprazole [Prilosec (RX)] 40 mg PO DAILY 06/23/15 Amlodipine Besylate [Norvasc -] 5 mg PO DAILY #30 tablet 06/25/15 Atorvastatin Ca [Lipitor] 40 mg PO HS 11/07/16 Budesonide/Formeterol Fumarate 1 inh PO BID 11/07/16 [SYMBICORT 160/4.5mcg -] Diazepam 10 mg PO DAILY 11/07/16 Finasteride [Proscar -] 5 mg PO DAILY 11/07/16 Chest : Rhonchi at right upper lobe area. otherwise CTA , improved ASSESSMENT AND PLAN: 71 year old male admitted with COPD exacerbation and pneumonia. # Acute COPD exacerbation improved ,continue home O2 2L via nc;continue at home Continue Symbicort ,Spiriva, Albuterol nebs q4h standing while awake -Solu-Medrol 40mg IVPB q6h is being switched to oral Prednisone 40mg x 4 , 30mg x4 , 20mg x4 , 10mg x 4. Continue Zithromax x 1 dose only , Ceftin 500mg po bid x10 more days # Acute on chronic respiratory failure with hypoxemia due to COPD exacerbation and Pneumonia improved follow with in a week period # Acute Pneumonia Continue with ceftin x 10 days and Azithromycin x 1 more day. # Acute Renal Failure improved 05/10.5 # Hypertension Continue home [facility]
--- NOTE | 2016-11-11 12:31 | DS ---
Physical Exam: SUBJECTIVE: Patient seen and examined. Breathing and cough improved. tolerated off nasal cannula. stable for outpatient follow-up. OBJECTIVE: Vital Signs Period Temp Pulse Resp BP Sys/Velázquez Pulse Ox Last 24 Hr 97.3 F-98.7 F 63-86 18-20 135-151/66-88 95-97 PHYSICAL EXAM GENERAL: The patient is awake, alert, and fully oriented, in no acute distresss. EYES: PERRL, extraocular movements intact, sclera anicteric, conjunctiva clear. ENT: Ears normal, nares patent, oropharynx clear without exudates, moist mucous membranes. NECK: Trachea midline, full range of motion, supple. LUNGS: scattered wheezes L>R with scattered rhonchi. no accessory muscle use. HEART: Regular rate and rhythm, S1, S2 without murmur, rub or gallop. ABDOMEN: Soft, nontender, nondistended, normoactive bowel sounds, no guarding, no rebound, no hepatosplenomegaly, no masses. EXTREMITIES: 2+ pulses, warm, well-perfused, no edema. LABS Laboratory Tests 11/07/16 11/07/16 13:45 13:45 WBC 12.8 H RBC 5.57 D Hgb 16.6 D Hct 51.2 H D MCV 91.9 MCHC 32.4 RDW 13.4 Plt Count 191 MPV 8.8 Neutrophils % 72.6 Lymphocytes % 12.9 Monocytes % 12.8 H Eosinophils % 0.8 Basophils % 0.9 Sodium 143 Potassium 4.3 Chloride 104 Carbon Dioxide 30 Anion Gap 9 BUN 23 H D Creatinine 1.5 H D Creat Clearance w eGFR 45.87 Random Glucose 88 Calcium 9.4 Magnesium Total Bilirubin 0.5 AST 19 D ALT 25 Alkaline Phosphatase 107 Creatine Kinase 152 D Creatine Kinase Index 2.6 CK-MB (CK-2) 3.931 H CK-MB (CK-2) Rel Index Troponin I < 0.02 Total Protein 7.6 Albumin 3.9 11/08/16 11/08/16 11/09/16 07:05 07:05 15:35 WBC 15.6 H RBC 4.84 Hgb 15.3 Hct 45.1 MCV 93.2 MCHC 33.8 RDW 13.2 Plt Count 196 MPV 8.9 Neutrophils % 92.4 H D Lymphocytes % 4.6 L D Monocytes % 2.6 L Eosinophils % 0.0 D Basophils % 0.4 Sodium 142 Potassium 4.6 Chloride 104 Carbon Dioxide 27 Anion Gap 11 BUN 29 H D Creatinine 1.5 H Creat Clearance w eGFR 45.87 Random Glucose 179 H D Calcium 9.1 Magnesium 2.5 H D Total Bilirubin 0.3 D AST 14 L D ALT 24 Alkaline Phosphatase 95 Creatine Kinase Creatine Kinase Index CK-MB (CK-2) CK-MB (CK-2) Rel Index Troponin I Total Protein 7.1 Albumin 3.7 U Random Total Protein 14 H Urine Creatinine 52.4 Protein/Creatinin Ratio 0.26 11/09/16 15:35 Urine Color Straw Urine Appearance Clear Urine pH 6.0 Ur Specific [place] 1.009 Urine Protein Negative Urine Glucose (UA) 1+ H Urine Ketones Negative Urine Blood Negative Urine Nitrite Negative Urine Bilirubin Negative Urine Urobilinogen Negative Ur Leukocyte Esterase Negative U Random Total Protein 14 H Urine Creatinine 52.4 Protein/Creatinin Ratio 0.26 Microbiology 11/07/16 14:00 Blood - Peripheral Venous Blood Culture - Preliminary NO GROWTH OBTAINED AFTER 96 HOURS, INCUBATION TO CONTINUE FOR 1 DAYS. 11/07/16 13:45 Blood - Peripheral Venous Blood Culture - Preliminary NO GROWTH OBTAINED AFTER 96 HOURS, INCUBATION TO CONTINUE FOR 1 DAYS. 11/07/16 19:40 Nasopharyngeal Swab Respiratory Virus Panel - Preliminary 11/08/16 06:00 Urine For Antigen Detection Legionella Antigen - Final 11/07/16 18:45 Urine For Antigen Detection Legionella Antigen - Final 11/07/16 18:45 Urine For Antigen Detection Streptococcus pneumoniae Antigen (M - Final 11/07/16 19:40 Nasopharyngeal Swab Influenza Types A,B Antigen (SOPHIA) - Final 11/07/16 19:40 Nasopharyngeal Swab - Final HOSPITAL COURSE: Date of Admission:11/07/16 - Date of Discharge: 11/11/16 71 year old man with a history of COPD, CAD s/p CABG, HTN, and BPH who presented complaining of 3 days of worsening dyspnea (on minimal exertion), fever up to 102, and cough productive of yellow sputum. Chest xray on admission was suspicious for a developing right lower lobe pneumonia. He was started on solumedrol IV 60mg q6 for 2 days then 40mg q6. He was treated with azithromycin 250mg iv qdaily for 4 days during hospitalization and [facility] Repeat chest xray on 11/10 was negative for acute pathology. His cough and breathing improved. He was discharged with 1 additional day of azithromycin to complete a 5-day course and 10 days of ceftin 500mg BID to complete a 14-day course. He was also discharged with prednisone taper: 40mg for 4 days 30mg for 4 days 20mg for 4 days 10mg for 4 days Minutes to complete discharge: 38 Discharge Summary Reason For Visit: PNEUMONIA Current Active Problems Acute on chronic respiratory failure with hypoxemia (Acute) COPD exacerbation (Acute) Pneumonia (Acute) ASHD (arteriosclerotic heart disease) (Chronic) Hypertension (Chronic) S/P CABG (coronary artery bypass graft) (Chronic) Sleep apnea (Chronic) Condition: Improved - Instructions Diet, Activity, Other Instructions: Resume your home medications, take all of your inhalers as directed. Take azithromycin for 1 day, tomorrow, to complete a 5-day course. Take Ceftin 1 tablet twice a day for 10 days to complete a 14-day course. Take prednisone taper as directed: 40mg for 4 days 30mg for 4 days 20mg for 4 days 10mg for 4 days Follow-up with Dr. Payne and Dr. Zapata in one week to review your hospitalization. Referrals: Macario Zapata MD [Primary Care Provider] - 1 Week Saul Payne MD [Staff Physician] - 1 Week Disposition: HOME - Home Medications Comprehensive Discharge Medication List: Ambulatory Orders Albuterol Sulfate Inhaler - [Ventolin HFA Inhaler -] 1 - 2 inh PO Q4H PRN Omeprazole [Prilosec (RX)] 40 mg PO DAILY 06/23/15 Amlodipine Besylate [Norvasc -] 5 mg PO DAILY #30 tablet 06/25/15 Atorvastatin Ca [Lipitor] 40 mg PO HS 11/07/16 Budesonide/Formeterol Fumarate [SYMBICORT 160/4.5mcg -] 1 inh PO BID 11/07/16 Diazepam 10 mg PO DAILY 11/07/16 Finasteride [Proscar -] 5 mg PO DAILY 11/07/16 Azithromycin 250 mg PO DAILY #1 tablet 11/11/16 Cefuroxime Axetil [Ceftin -] 500 mg PO Q12H #20 tablet 03/07/17 Guaifenesin AC [Robitussin AC -] 10 ml PO Q6H PRN #120 ml MDD 40 11/11/16 Prednisone 10 mg PO DAILY #40 tablet 11/11/16 Tiotropium [place] [Spiriva] 1 puff IH DAILY #1 inh 11/11/16 This patient is new to me today: No Emergency Visit: No Critical Care patient: No - Discharge Referral Referred to [facility] No
== END 2016-11-11 13:45 | disposition home or self-care (01) | DRG 189 ==
LOC: JER 13:44 → JERBED 15:12 → J5S 17:04
PROVIDERS: ADMIT Internal Medicine; ATTEND Internal Medicine
PROC: 5A09557 Assistance with Respiratory Ventilation, Greater than 96 Consecutive Hours, Continuous Positive Airway Pressure (ICD-10-PCS; principal; 2016-11-07)
DX: J96.21 Acute and chronic respiratory failure with hypoxia (principal); J18.9 Pneumonia, unspecified organism; J44.1 Chronic obstructive pulmonary disease with (acute) exacerbation; N17.9 Acute kidney failure, unspecified; E78.5 Hyperlipidemia, unspecified; N40.0 Benign prostatic hyperplasia without lower urinary tract symptoms; G47.33 Obstructive sleep apnea (adult) (pediatric); I25.10 Atherosclerotic heart disease of native coronary artery without angina pectoris; Z95.1 Presence of aortocoronary bypass graft; Z87.891 Personal history of nicotine dependence; I12.9 Hypertensive chronic kidney disease with stage 1 through stage 4 chronic kidney disease, or unspecified chronic kidney disease; N18.9 Chronic kidney disease, unspecified
CPT/HCPCS: 36415; 71010-TC; 71020-TC; 76775-TC; 80053; 81003; 82550; 82553; 82570; 83735; 84156; 84484; 85025; 87040; 87254; 87804; 87899; 93005; 93010; 94640; 94660; 99283-25; J1644

== ENCOUNTER 2019-10-16 21:20 | Inpatient (IN) | payer OTHER ==
[2019-10-16] MEDS: ALBUTEROL SO4 2.5/IPRATROPIUM 0.5 INH SOL 3 ML VIAL.NEB. NEB SCH ×4 (21:25→22:19)
[2019-10-16] MEDS ORDERED: methylPREDNISolone NA SUCC 125 MG/2 ML VIAL IVPUSH ONE (21:30)
[2019-10-16] MEDS ORDERED: SODIUM CHLORIDE 1,000 ML IV ONE (21:30)
[2019-10-16] MEDS ORDERED: methylPREDNISolone NA SUCC 125 MG/2 ML VIAL ONE (21:37)
[2019-10-16 21:46] LABS: HEMATOCRIT 47.9 % (35.4-49); HEMOGLOBIN 15.6 GM/dl (11.7-16.9); MCH 30.8 pg (25.7-33.7); MCHC 32.5 g/dl (32.0-35.9); MEAN CELL VOLUME 94.9 fl (80-96); MEAN PLT VOLUME 9.7 fl (7.5-11.1); PLATELET COUNT 251 K/MM3 (134-434); RBC 5.05 M/mm3 (4.00-5.60); RDW 12.5 % (11.9-15.9); WHITE BLOOD COUNT 15.6 K/mm3 (4.0-10.8)
[2019-10-16 22:00] LABS: ALBUMIN 3.8 g/dl (3.4-5.0); BILIRUBIN,TOTAL 0.6 mg/dl (0.2-1); CALCIUM 8.8 mg/dl (8.5-10); CREATININE 1.7 mg/dl (0.55-1.3); POTASSIUM 4.5 mmol/L (3.5-5.1); TOT PROT 6.8 g/dl (6.4-8.2)
[2019-10-16 22:08] LABS: PLATELET ESTIMATE ADEQUATE
[2019-10-16] MEDS ORDERED: ALBUTEROL SO4 2.5/IPRATROPIUM 0.5 INH SOL 3 ML VIAL.NEB. NEB ONE (22:12)
--- NOTE | 2019-10-16 22:19 | PDOC ---
Documentation entered by Octavio Trevino SCRIBE, acting as scribe for Ovi Narayanan MD. Ovi Narayanan MD: This documentation has been prepared by the Belinda lal Nirvannie, SCRIBE, under my direction and personally reviewed by me in its entirety. I confirm that the documentation accurately reflects all work, treatment, procedures, and medical decision making performed by me. History of Present Illness - General Chief Complaint: Respiratory Stated Complaint: BODY ACHES, CHILLS History Source: Patient Exam Limitations: No Limitations - History of Present Illness Initial Comments: 10/16/19 21:41 HPI: The patient is a year old male, with a significant past medical history of HTN, COPD, BPH, CAD (s/p CABG), PKD, who presents to the emergency department with 2 days of shortness of breath and fever. As per patient, his symptoms initially onset yesterday as shortness of breath with a low grade fever. He notes today he began to develop chills, headache, diffuse myalgias, and wheezing, prompting his arrival to the ED. Patient notes to have recently finished Macrobid (last dosage today, [id number] TID) for a UTI, He denies any recent nausea, vomit, diarrhea or constipation. He denies any recent chest pain or palpitations. He denies any recent dysuria, frequency, urgency or hematuria. PAST MEDICAL HISTORY: HTN, COPD, BPH, CAD (s/p CABG), PKD PAST SURGICAL HISTORY: CABG FAMILY HISTORY: no pertinent history SOCIAL HISTORY: Former smoker. Pt lives with family and is employed. MEDICATIONS: reviewed ALLERGIES: As per nursing notes ROS: General: +fevers +chills, +myalgias, no weight loss HEENT: No change in vision. No sore throat,. No ear pain CardioVascular: No chest pain or shortness of breath Respiratory:No cough, or wheezing. Gastrointestinal: no nausea, vomiting, diarrhea or constipation, No rectal bleeding Genitourinary: No dysuria, hematuria, or frequency Musculoskeletal: No joint or muscle swelling Neurologic: +Headache. No vertigo, dizziness or loss of consciousness Psychiatric: nor depression Skin: No rashes or easy bruising Endocrine: no increased thirst or abnormal weight change Allergic: no skin or latex allergy All other systems reviewed and normal Physical Exam: General: +Shaking chills upon exam. Well-nourished well-developed individual, no acute distress HEENT: Throat: Normal, tonsils normal, no erythema or exudate Neck: Supple, no meningeal signs, no lymphadenopathy Eyes::Pupils equal reactive and round, extraocular motion intact Chest: Nontender to palpation Cardiac: S1-S2 normal, regular rate and rhythm, no murmurs rubs or gallops Respiratory: +Decreased breath sounds bilaterally and expiratory wheezes in all lung chi, moderate respiratory distress, accessory usage of muscles with respirations. Abdomen: Soft, nondistended, normal bowel sounds, nontender to palpation diffusely Extremities: Warm, dry, no cyanosis, clubbing, or edema Skin: No rashes Neuro: Alert and oriented x3, nonfocal exam, grossly intact Psych: Normal mood and affect 10/16/19 22:16 Assessment and plan: This is a 74-year-old male who comes in in moderate respiratory distress. Patient O2 sats were in the mid 80s. Patient was tachypneic with use of accessory muscles. Patient has a history of COPD. Patient otherwise is complaining of some shaking chills and fevers. Work-up initiated including CBC, comp, lactic acid, venous blood gas, EKG, chest x-ray, blood cultures, urine cultures, urinalysis patient given continuous DuoNeb's x4 and Solu-Medrol Patient on a monitor and also receiving IV fluids Past History - Past Medical History Allergies/Adverse Reactions: Allergies Allergy/AdvReac Type Severity Reaction Status Date / Time lisinopril Allergy Swelling Verified 10/16/19 21:44 cyclobenzaprine HCl AdvReac Vomiting Verified 10/16/19 21:44 [From Flexeril] oxycodone AdvReac Vomiting Verified 10/16/19 21:44 Home Medications: Ambulatory Orders Albuterol Sulfate Inhaler - [Ventolin HFA Inhaler -] 1 - 2 inh PO Q4H PRN Omeprazole [Prilosec (RX)] 40 mg PO DAILY 06/23/15 Amlodipine Besylate [Norvasc -] 5 mg PO DAILY #30 tablet 06/25/15 Atorvastatin Ca [Lipitor] 40 mg PO HS 11/07/16 Budesonide/Formeterol Fumarate [SYMBICORT 160/4.5mcg -] 1 inh PO BID 11/07/16 Diazepam 10 mg PO DAILY 11/07/16 Finasteride [Proscar -] 5 mg PO DAILY 11/07/16 Tiotropium [place] [Spiriva] 1 puff IH DAILY #1 inh 11/11/16 Anemia: No Asthma: No Cancer: No Cardiac Disorders: Yes (CAD) CVA: No COPD: Yes CHF: No Dementia: No Diabetes: No GI Disorders: No Disorders: Yes (PKD, BPH) HTN: Yes Hypercholesterolemia: Yes Liver Disease: No Seizures: No Thyroid Disease: No - Surgical History Abdominal Surgery: No Appendectomy: No Cardiac Surgery: Yes (QUAD BYPASS) Cholecystectomy: No Lung Surgery: No Neurologic Surgery: No Orthopedic Surgery: No - Immunization History Td Vaccination: No TDAP Vaccination: No Immunization Up to Date: Yes - Psycho Social/Smoking Cessation Hx Smoking Status: Yes Smoking History: Former smoker Have you smoked in the past 12 months: No Number of Cigarettes Smoked Daily: 0 If you are a former smoker, when did you quit?: 2012 'Breaking Loose' booklet given: 01/08/14 Hx Alcohol Use: Yes (RARE) Drug/Substance Use Hx: No Substance Use Type: None Hx Substance Use Treatment: No *Physical Exam - Vital Signs Last Vital Signs Temp Pulse Resp BP Pulse Ox 99.1 F 119 H 29 H 151/76 96 10/16/19 21:21 10/16/19 22:09 10/16/19 22:09 10/16/19 22:09 10/16/19 22:09 ED Treatment Course - LABORATORY CBC & Chemistry Diagram: 10/16/19 21:30 10/16/19 21:30 - ADDITIONAL ORDERS Additional order review: Laboratory Results 10/16/19 10/16/19 21:30 21:30 Sodium 141 Potassium 4.5 Chloride 101 Carbon Dioxide 28 Anion Gap 12 BUN 31.0 H Creatinine 1.7 H Est GFR (CKD-EPI)AfAm 44.41 Est GFR (CKD-EPI)NonAf 38.32 Random Glucose 137 H Calcium 8.8 Total Bilirubin 0.6 AST 22 ALT 17 Alkaline Phosphatase 73 Creatine Kinase 56 Troponin I < 0.03 Total Protein 6.8 Albumin 3.8 10/16/19 21:30 RBC 5.05 MCV 94.9 MCHC 32.5 RDW 12.5 MPV 9.7 Neutrophils % No Result Required. Lymphocytes % No Result Required. - RADIOLOGY Radiology Studies Ordered: Category Date Time Status CHEST X-RAY PORTABLE* [RAD] Stat Radiology 10/16/19 21:25 Ordered - Medications Given in the ED: ED Medications Discontinued Medications Generic Name Dose Route Start Last Admin Trade Name Freq PRN Reason Stop Dose Admin Albuterol/Ipratropium 1 amp 10/16/19 21:30 10/16/19 22:05 Duoneb - NEB 10/16/19 22:16 1 amp Q15M JONATHAN Administration Methylprednisolone Sodium Succinate 125 mg 10/16/19 21:30 10/16/19 21:42 Solu-Medrol - IVPUSH 10/16/19 21:31 125 mg ONCE ONE Administration Discharge - Discharge Information Problems reviewed: Yes Clinical Impression/Diagnosis: COPD exacerbation Pneumonia Qualifiers: Pneumonia type: due to unspecified organism Laterality: right Lung location: lower lobe of lung Qualified Code(s): J18.9 - Pneumonia, unspecified organism Condition: Fair - Admission Yes - Follow up/Referral Referrals: Macario Zapata MD [Primary Care Provider] - - Patient Discharge Instructions - Post Discharge Activity
[2019-10-16] MEDS ORDERED: ACETAMINOPHEN 1000 MG/100 ML VIAL (NON FORMULARY) IVPB ONE (22:32)
[2019-10-16] MEDS ORDERED: ACETAMINOPHEN INJECTION 100 ML IVPB ONE (22:33)
[2019-10-16 22:45] LABS: VENOUS PC02 60.3 mmHg (38-52); VENOUS PH 7.32 (7.31-7.41); VENOUS PO2 < 49 mmHg (28-48)
[2019-10-16] MEDS ORDERED: AZITHROMYCIN IVPB 500 MG in DEXTROSE 5%-WATER - 250 ML IVPB ONE (22:53)
[2019-10-16] MEDS ORDERED: CEFTRIAXONE 1,000 MG in DEXTROSE 5%-WATER - 50 ML IVPB ONE (22:53)
[2019-10-16] MEDS ORDERED: AZITHROMYCIN 500 MG VIAL IVPB ONE (22:58)
[2019-10-16] MEDS ORDERED: cefTRIAXone SODIUM 1 GM VIAL ONE (22:59)
[2019-10-16] MEDS ORDERED: ONDANSETRON 4 MG/2 ML VIAL IVPUSH ONE (23:43)
[2019-10-16] MEDS ORDERED: ONDANSETRON 4 MG/2 ML VIAL ONE (23:44)
[2019-10-16] MEDS ORDERED: ONDANSETRON *ODT* 4 MG TABLET ONE (23:44)
[2019-10-17] MEDS ORDERED: ACETAMINOPHEN 325 MG TABLET (FP) PO PRN (00:08)
[2019-10-17] MEDS: SODIUM CHLORIDE 1,000 ML IV SCH (01:17)
[2019-10-17] MEDS: diazePAM 5 MG TABLET PO SCH ×2 (01:30→21:05)
[2019-10-17] MEDS: methylPREDNISolone NA SUCC 40 MG/1 ML VIAL IVPUSH SCH ×3 (01:30→18:00)
[2019-10-17 02:18] VITALS: BMI 25.9
[2019-10-17] MEDS: HEPARIN NA (PORCINE) 5,000 UNITS/ML 1ML VIAL SQ SCH ×3 (06:45→21:07)
[2019-10-17 06:58] LABS: CALCIUM 8.3 mg/dl (8.5-10); CREATININE 1.7 mg/dl (0.55-1.3); POTASSIUM 5.1 mmol/L (3.5-5.1)
--- NOTE | 2019-10-17 08:58 | HP ---
CHIEF COMPLAINT: Fever, SOB PCP: Dr. Zapata HISTORY OF PRESENT ILLNESS: 74 year-old male with a PMH significant for HTN, HLD, CAD, COPD, BPH, and polycystic kidney disease, who presented to the [facility] with 2 days of shortness of breath and fever. As per patient, his symptoms initially onset yesterday as shortness of breath with a low grade fever. Today he began to develop chills, headache, diffuse myalgias, and wheezing, prompting his arrival to the ED. Patient today completed 10-day course of Macrobid for a UTI. He denies any recent nausea, vomit, diarrhea or constipation. He denies any recent chest pain or palpitations. He denies any recent dysuria, frequency, urgency or hematuria. ER course was notable for: (1) T 103.7, p120, WBC 15.6, sats 80s (2) Lactic acid 2.1-->2.4-->2.5 (3) Cr 1.7 Recent Travel: No PAST MEDICAL HISTORY: Hypertension Hyperlipidemia Coronary artery disease COPD BPH Polycystic kidney disease PAST SURGICAL HISTORY: CABG x 4 Social History: Lives with . 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 Smoking: former, quit 2012 Alcohol: rare Drugs: no Allergies lisinopril Allergy (Verified 10/16/19 21:44) Swelling angioedema cyclobenzaprine HCl [From Flexeril] Adverse Reaction (Verified 10/16/19 21:44) Vomiting oxycodone Adverse Reaction (Verified 10/16/19 21:44) Vomiting HOME MEDICATIONS: Home Medications Medication Instructions Recorded Albuterol Sulfate Inhaler - 1 - 2 inh PO Q4H PRN 06/23/15 [Ventolin HFA Inhaler -] Omeprazole [Prilosec (RX)] 40 mg PO DAILY 06/23/15 Amlodipine Besylate [Norvasc -] 5 mg PO DAILY #30 tablet 06/25/15 Atorvastatin Ca [Lipitor] 40 mg PO HS 11/07/16 Budesonide/Formeterol Fumarate 1 inh PO BID 11/07/16 [SYMBICORT 160/4.5mcg -] Diazepam 10 mg PO DAILY 11/07/16 Finasteride [Proscar -] 5 mg PO DAILY 11/07/16 Tiotropium [place] [Spiriva] 1 puff IH DAILY #1 inh 11/11/16 REVIEW OF SYSTEMS CONSTITUTIONAL: +subjective fever, chills, headache, malaise Absent: diaphoresis, generalized weakness, loss of appetite, weight change HEENT: Absent: rhinorrhea, nasal congestion, throat pain, throat swelling, difficulty swallowing, mouth swelling, ear pain, eye pain, visual changes CARDIOVASCULAR: Absent: chest pain, syncope, palpitations, irregular heart rate, lightheadedness , peripheral edema RESPIRATORY: +SOB, wheezing Absent: cough, shortness of breath, dyspnea with exertion, orthopnea, wheezing, stridor, hemoptysis GASTROINTESTINAL: Absent: abdominal pain, abdominal distension, nausea, vomiting, diarrhea, constipation, melena, hematochezia GENITOURINARY: Absent: dysuria, frequency, urgency, hesitancy, hematuria, flank pain, genital pain MUSCULOSKELETAL: Absent: myalgia, arthralgia, joint swelling, back pain, neck pain SKIN: Absent: rash, itching, pallor HEMATOLOGIC/IMMUNOLOGIC: Absent: easy bleeding, easy bruising, lymphadenopathy, frequent infections ENDOCRINE: Absent: unexplained weight gain, unexplained weight loss, heat intolerance, cold intolerance NEUROLOGIC: Absent: headache, focal weakness or paresthesias, dizziness, unsteady gait, seizure, mental status changes, bladder or bowel incontinence PSYCHIATRIC: Absent: anxiety, depression, suicidal or homicidal ideation, hallucinations. PHYSICAL EXAMINATION Vital Signs - 24 hr 10/16/19 10/16/19 10/16/19 21:21 21:22 22:03 Temperature 99.1 F Pulse Rate 120 H 115 H Pulse Rate [ 116 H Apical] Respiratory 32 H 33 H Rate Blood Pressure 166/94 Blood Pressure 143/81 [Right Arm] O2 Sat by Pulse 86 L 96 98 Oximetry (%) 10/16/19 10/16/19 10/16/19 22:09 22:31 23:16 Temperature 103.7 F H 102.2 F H Pulse Rate Pulse Rate [ 119 H 136 H 118 H Apical] Respiratory 29 H 32 H 28 H Rate Blood Pressure Blood Pressure 151/76 156/76 130/65 [Right Arm] O2 Sat by Pulse 96 92 L Oximetry (%) 10/17/19 10/17/19 10/17/19 00:17 01:01 05:49 Temperature 98.0 F 97.4 F L Pulse Rate 106 H 79 Pulse Rate [ Apical] Respiratory 18 18 Rate Blood Pressure 102/62 113/62 Blood Pressure [Right Arm] O2 Sat by Pulse 92 L Oximetry (%) 10/17/19 07:36 Temperature Pulse Rate Pulse Rate [ Apical] Respiratory Rate Blood Pressure Blood Pressure [Right Arm] O2 Sat by Pulse 98 Oximetry (%) GENERAL: Awake, alert, and fully oriented, in no acute distress. LUNGS: Diffuse wheezing, scattered rhonchi HEART: Regular rate and rhythm, S1 and S2 ABDOMEN: Soft, nontender, not distended MUSCULOSKELETAL: Normal range of motion at all joints. No bony deformities or tenderness. No CVA tenderness. UPPER EXTREMITIES: 2+ pulses, warm, well-perfused. No cyanosis. No clubbing. No peripheral edema. LOWER EXTREMITIES: 2+ pulses, warm, well-perfused. No calf tenderness. No peripheral edema. NEUROLOGICAL: Cranial nerves II-XII intact. Normal speech. Self-positions easily. Laboratory Results - last 24 hr 10/16/19 10/16/19 10/16/19 21:30 21:30 21:30 WBC 15.6 H RBC 5.05 Hgb 15.6 Hct 47.9 MCV 94.9 MCH 30.8 MCHC 32.5 RDW 12.5 Plt Count 251 MPV 9.7 Absolute Neuts (auto) 12.4 Neutrophils % No Result Required. Neutrophils % (Manual) 85.0 H Band Neutrophils % 2.0 Lymphocytes % No Result Required. Lymphocytes % (Manual) 9.0 Monocytes % (Manual) 3 L Eosinophils % (Manual) 1.0 Platelet Estimate Adequate VBG pH POC VBG pCO2 POC VBG pO2 VBG HCO3 VBG O2 Sat (Jocelin) VBG Base Excess Sodium 141 Potassium 4.5 Chloride 101 Carbon Dioxide 28 Anion Gap 12 BUN 31.0 H Creatinine 1.7 H Est GFR (CKD-EPI)AfAm 44.41 Est GFR (CKD-EPI)NonAf 38.32 Random Glucose 137 H Lactic Acid Calcium 8.8 Total Bilirubin 0.6 AST 22 ALT 17 Alkaline Phosphatase 73 Creatine Kinase 56 Troponin I < 0.03 Total Protein 6.8 Albumin 3.8 Urine Color Urine Appearance Urine pH Urine Protein Urine Glucose (UA) Urine Ketones Urine Blood Urine Nitrite Urine Bilirubin Urine Urobilinogen Ur Leukocyte Esterase Urine RBC Urine WBC Urine Bacteria Influenza A (Rapid) Influenza B (Rapid) 10/16/19 10/16/19 10/16/19 21:30 22:00 22:30 WBC RBC Hgb Hct MCV MCH MCHC RDW Plt Count MPV Absolute Neuts (auto) Neutrophils % Neutrophils % (Manual) Band Neutrophils % Lymphocytes % Lymphocytes % (Manual) Monocytes % (Manual) Eosinophils % (Manual) Platelet Estimate VBG pH 7.32 POC VBG pCO2 60.3 H POC VBG pO2 < 49 H VBG HCO3 30.4 H VBG O2 Sat (Jocelin) 38.6 L VBG Base Excess 3.1 H Sodium Potassium Chloride Carbon Dioxide Anion Gap BUN Creatinine Est GFR (CKD-EPI)AfAm Est GFR (CKD-EPI)NonAf Random Glucose Lactic Acid 2.1 H Calcium Total Bilirubin AST ALT Alkaline Phosphatase Creatine Kinase Troponin I Total Protein Albumin Urine Color Yellow Urine Appearance Slightly Urine pH 5.0 Urine Protein 2+ H Urine Glucose (UA) Trace Urine Ketones Negative Urine Blood Negative Urine Nitrite Positive Urine Bilirubin Negative Urine Urobilinogen 1.0 Ur Leukocyte Esterase Negative Urine RBC 0-2 Urine WBC 2-5 Urine Bacteria Few Influenza A (Rapid) Influenza B (Rapid) 10/16/19 10/17/19 10/17/19 22:30 00:35 06:35 WBC RBC Hgb Hct MCV MCH MCHC RDW Plt Count MPV Absolute Neuts (auto) Neutrophils % Neutrophils % (Manual) Band Neutrophils % Lymphocytes % Lymphocytes % (Manual) Monocytes % (Manual) Eosinophils % (Manual) Platelet Estimate VBG pH POC VBG pCO2 POC VBG pO2 VBG HCO3 VBG O2 Sat (Jocelin) VBG Base Excess Sodium 136 Potassium 5.1 Chloride 107 Carbon Dioxide 23 Anion Gap 6 L BUN 33.0 H Creatinine 1.7 H Est GFR (CKD-EPI)AfAm 44.41 Est GFR (CKD-EPI)NonAf 38.32 Random Glucose 201 H Lactic Acid 2.4 H* Calcium 8.3 L Total Bilirubin AST ALT Alkaline Phosphatase Creatine Kinase Troponin I Total Protein Albumin Urine Color Urine Appearance Urine pH Urine Protein Urine Glucose (UA) Urine Ketones Urine Blood Urine Nitrite Urine Bilirubin Urine Urobilinogen Ur Leukocyte Esterase Urine RBC Urine WBC Urine Bacteria Influenza A (Rapid) Negative Influenza B (Rapid) Negative ASSESSMENT/PLAN: 74 year-old male with a PMH significant for HTN, HLD, CAD, COPD, BPH, and PKD, who presented to the [facility] with 2 days of shortness of breath and fever. Admitted for severe sepsis possibly secondary to CAP. Severe sepsis possibly secondary to community acquired pneumonia Hypoxic respiratory failure Interstitial lung disease COPD --T103.7, p120, WBC 15.6, lactic acid 2.1 present on admission; satting in mid 80s in ED --10/17 CT chest: moderate to marked centrilobular emphysema; ILD with possible superimposed pneumonia both lower lobes; close CT followup --symptoms consistent with influenza althouth rapid flu negative, resp virus culture ordered --continue azithro (day #2) and ceftriaxone (day #2); start Tamiflu --duonebs, Symbicort, Spiriva --IV steroids per pulmonary --titrate SpO2<95% Lactic acidosis --lactic acid trending up --continue IV fluids Elevated creatinine --Cr 1.7 on admission, baseline ~1.2 --continue IV fluids Hypertension --BP stable --continue amlodipine Hyperlipidemia --continue atorvastatin Coronary artery disease --not on ASA or beta bocker therapy BPH --continue finasteride Polycystic kidney disease --no acute issues FEN Fluids: NS@75mL/hr Electrolytes: replete as indicated Nutrition: low sodium DVT prophylaxis: subq heparin Dispo: continues to require inpatient care. Full code. Visit type - Emergency Visit Emergency Visit: Yes ED Registration Date: 10/16/19 Care time: The patient presented to the Emergency Department on the above date and was hospitalized for further evaluation of their emergent condition. - New Patient This patient is new to me today: Yes Date on this admission: 10/18/19 - Critical Care Critical Care patient: No
[2019-10-17] MEDS ORDERED: SODIUM CHLORIDE 1,000 ML IV STA (09:14)
--- NOTE | 2019-10-17 09:43 | EKG ---
Test Reason : Blood Pressure : / mmHG Vent. Rate : 113 BPM Atrial Rate : 113 BPM P-R Int : 194 ms QRS Dur : 090 ms QT Int : 306 ms P-R-T Axes : 077 054 048 degrees QTc Int : 419 ms SINUS TACHYCARDIA NONSPECIFIC ST ABNORMALITY ABNORMAL ECG WHEN COMPARED WITH ECG OF 07-NOV-2016 16:20, NO SIGNIFICANT CHANGE WAS FOUND Confirmed by Huong Grossman ([id number]) on 10/17/2019 9:43:05 AM Referred By: Confirmed By:Huong Grossman
[2019-10-17] MEDS ORDERED: PT OWN MED DRAWER 7, Y5N ONE (09:44)
[2019-10-17] MEDS: ALBUTEROL SO4 2.5/IPRATROPIUM 0.5 INH SOL 3 ML VIAL.NEB. NEB SCH ×4 (09:47→21:05)
[2019-10-17] MEDS: amLODIPine BESYLATE 5 MG TABLET (FP) PO SCH (09:48)
[2019-10-17] MEDS: PANTOPRAZOLE 40 MG TABLET PO SCH (09:50)
[2019-10-17] MEDS: FINASTERIDE 5 MG TABLET (FP) PO SCH (09:50)
[2019-10-17] MEDS: BUDESONIDE/FORMETEROL FUMARATE 160/4.5 mcg INHALER IH SCH ×2 (09:53→21:06)
[2019-10-17] MEDS ORDERED: TIOTROPIUM BROMIDE 2.5 MCG (SPIRIVA) RESPIMAT INHALER IH SCH (10:00)
[2019-10-17] MEDS ORDERED: AZITHROMYCIN 500 MG TABLET PO SCH (10:00)
[2019-10-17] MEDS ORDERED: MAGNESIUM SULF 50% (8.12 MEQ/2 ML-1 GM VIAL) IVPB ONE (10:43)
--- NOTE | 2019-10-17 13:15 | CON.PULM ---
Consult Consult Specialty:: PULMONARY Referred by:: GAYLE Reason for Consultation:: COPD - History of Present Illness Chief Complaint: SOB/COUGH History of Present Illness: The patient is a 74 year old male, with a significant past medical history of HTN, COPD on home o2, BPH, CAD (s/p CABG), PKD, who presents to the emergency department with 2 days of shortness of breath and fever. As per patient, his symptoms initially onset yesterday as shortness of breath with a low grade fever. He notes today he began to develop chills, headache, diffuse myalgias, and wheezing, prompting his arrival to the ED. Patient notes to have recently finished Macrobid (last dosage today, [id number] TID) for a UTI, He denies any recent nausea, vomit, diarrhea or constipation. He denies any recent chest pain or palpitations. He denies any recent dysuria, frequency, urgency or hematuria. 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 No: AFIB Pulmonary: Yes: COPD Renal/: Yes: BPH, Other (PKD) - Past Surgical History Past Surgical History: Yes: CABG - Alcohol/Substance Use Hx Alcohol Use: Yes (RARE) History of Substance Use: reports: None - Smoking History Smoking history: Former smoker Have you smoked in the past 12 months: No Aproximately how many cigarettes per day: 0 If you are a former smoker, when did you quit?: 2012 - Social History ADL: Independent Home Medications - Allergies Allergies/Adverse Reactions: Allergies Allergy/AdvReac Type Severity Reaction Status Date / Time lisinopril Allergy Swelling Verified 10/16/19 21:44 cyclobenzaprine HCl AdvReac Vomiting Verified 10/16/19 21:44 [From Flexeril] oxycodone AdvReac Vomiting Verified 10/16/19 21:44 - Home Medications Home Medications: Ambulatory Orders Albuterol Sulfate Inhaler - [Ventolin HFA Inhaler -] 1 - 2 inh PO Q4H PRN Omeprazole [Prilosec (RX)] 40 mg PO DAILY 06/23/15 Amlodipine Besylate [Norvasc -] 5 mg PO DAILY #30 tablet 06/25/15 Atorvastatin Ca [Lipitor] 40 mg PO HS 11/07/16 Budesonide/Formeterol Fumarate [SYMBICORT 160/4.5mcg -] 1 inh PO BID 11/07/16 Diazepam 10 mg PO DAILY 11/07/16 Finasteride [Proscar -] 5 mg PO DAILY 11/07/16 Tiotropium Meherrin [Spiriva] 1 puff IH DAILY #1 inh 11/11/16 Family Medical History Family History: Unremarkable Review of Systems - Review of Systems Constitutional: reports: Fever Eyes: denies: Blurred Vision HENT: denies: Difficult Swallowing Neck: denies: Decreased ROM Cardiovascular: reports: Shortness of Breath. denies: Chest Pain, Edema Respiratory: reports: Cough, Exercise Intolerance, SOB on Exertion, Wheezing. denies: Hemoptysis Gastrointestinal: denies: Abdominal Pain Genitourinary: denies: Burning Breasts: reports: No Symptoms Reported Physical Exam Vital Sings: Vital Signs Temperature 97.5 F L 10/17/19 10:09 Pulse Rate 79 10/17/19 10:09 Respiratory Rate 19 10/17/19 10:09 Blood Pressure 139/69 10/17/19 10:09 O2 Sat by Pulse Oximetry (%) 95 10/17/19 10:09 Constitutional: Yes: Calm Eyes: Yes: EOM Intact HENT: Yes: Normocephalic, Hoarseness Neck: Yes: Trachea Midline Cardiovascular: Yes: Regular Rate and Rhythm, S1, S2 Respiratory: Yes: Rales (bases), Rhonchi (scattered rhonchi) Gastrointestinal: Yes: Normal Bowel Sounds, Soft Edema: No Labs: CBC, BMP 10/16/19 21:30 10/17/19 06:35 Imaging - Results Chest X-ray: Report Reviewed, Image Reviewed Cat Scan: Report Reviewed, Image Reviewed Problem List - Problems (1) COPD exacerbation Code(s): J44.1 - CHRONIC OBSTRUCTIVE PULMONARY DISEASE W (ACUTE) EXACERBATION (2) Pneumonia Code(s): J18.9 - PNEUMONIA, UNSPECIFIED ORGANISM Qualifiers: Pneumonia type: due to unspecified organism Laterality: right Lung location: lower lobe of lung Qualified Code(s): J18.9 - Pneumonia, unspecified organism (3) Acute on chronic respiratory failure with hypoxemia Code(s): J96.21 - ACUTE AND CHRONIC RESPIRATORY FAILURE WITH HYPOXIA (4) Renal insufficiency Code(s): N28.9 - DISORDER OF KIDNEY AND URETER, UNSPECIFIED (5) Hypertension Code(s): I10 - ESSENTIAL (PRIMARY) HYPERTENSION (6) S/P CABG (coronary artery bypass graft) Code(s): Z95.1 - PRESENCE OF AORTOCORONARY BYPASS GRAFT (7) Sleep apnea Code(s): G47.30 - SLEEP APNEA, UNSPECIFIED Assessment/Plan ACUTE ON CHRONIC HYPOXEMIC RESP FAILURE ACUTE EXACERBATION COPD ?RIGHT BASILAR INFILTRATE ON CT SYMPTOMS COULD BE C/W INFLUENZA (DESPITE RAPID A/B NEGATIVE) WILL ORDER RESP VIRAL PCR O2 SUPPLEMENTATION/BRONCHODILATION/ANTIBIOTICS WOULD ADMINISTER COURSE OF IV STEROIDS NO DOWNSIDE TO GIVING TAMIFLU 75MG BID WILL FOLLOW Carter VERMA MD
[2019-10-17] MEDS: OSELTAMIVIR PHOSPHATE 30 MG CAPSULE PO SCH ×2 (15:42→21:05)
[2019-10-17] MEDS ORDERED: REFRIGERATED ANITBIOTICS ONE (20:22)
[2019-10-17] MEDS: ATORVASTATIN CA 40 MG TABLET (FP) PO SCH (21:05)
[2019-10-17] MEDS: CEFTRIAXONE 1 G/50 ML PREMIX 50 ML IVPB SCH (21:05)
[2019-10-17] MEDS ORDERED: AZITHROMYCIN IVPB 250 MG in DEXTROSE 5%-WATER - 250 ML IVPB SCH (22:00)
[2019-10-18] MEDS: methylPREDNISolone NA SUCC 40 MG/1 ML VIAL IVPUSH SCH ×3 (01:24→18:40)
[2019-10-18] MEDS: SODIUM CHLORIDE 1,000 ML IV SCH (06:19)
[2019-10-18] MEDS: HEPARIN NA (PORCINE) 5,000 UNITS/ML 1ML VIAL SQ SCH ×3 (06:20→21:01)
[2019-10-18 07:59] LABS: HEMOGLOBIN 11.9 GM/dl (11.7-16.9); MCH 31.3 pg (25.7-33.7); MCHC 33.1 g/dl (32.0-35.9); MEAN CELL VOLUME 94.6 fl (80-96); MEAN PLT VOLUME 9.5 fl (7.5-11.1); PLATELET COUNT 179 K/MM3 (134-434); RDW 12.5 % (11.9-15.9); WHITE BLOOD COUNT 17.3 K/mm3 (4.0-10.8)
[2019-10-18 09:26] LABS: BILIRUBIN,TOTAL 0.5 mg/dl (0.2-1); CALCIUM 8.7 mg/dl (8.5-10); CREATININE 1.2 mg/dl (0.55-1.3); POTASSIUM 4.2 mmol/L (3.5-5.1); TOT PROT 5.8 g/dl (6.4-8.2)
--- NOTE | 2019-10-18 10:10 | PN ---
Physical Exam: SUBJECTIVE: Patient seen and examined at bedside. present. Did not sleep well last night. Had four episodes of diarrhea overnight and two this morning although stool is more formed today. OBJECTIVE: Vital Signs Period Temp Pulse Resp BP Sys/Velázquez Pulse Ox Last 24 Hr 97.6 F-98.4 F 82-89 18-20 128-147/61-83 94-96 GENERAL: Awake, alert, and fully oriented, in no acute distress. LUNGS: Diffuse wheezing, scattered rhonchi HEART: Regular rate and rhythm, S1 and S2 ABDOMEN: Soft, nontender, not distended MUSCULOSKELETAL: Normal range of motion at all joints. No bony deformities or tenderness. No CVA tenderness. UPPER EXTREMITIES: 2+ pulses, warm, well-perfused. No cyanosis. No clubbing. No peripheral edema. LOWER EXTREMITIES: 2+ pulses, warm, well-perfused. No calf tenderness. No peripheral edema. NEUROLOGICAL: Cranial nerves II-XII intact. Normal speech. Self-positions easily. Laboratory Results - last 24 hr 10/18/19 10/18/19 07:20 09:02 WBC 17.3 H RBC 3.80 L Hgb 11.9 Hct 36.0 D MCV 94.6 MCH 31.3 MCHC 33.1 RDW 12.5 Plt Count 179 D MPV 9.5 Sodium 139 Potassium 4.2 Chloride 110 H Carbon Dioxide 23 Anion Gap 6 L BUN 27.0 H Creatinine 1.2 Est GFR (CKD-EPI)AfAm 67.67 Est GFR (CKD-EPI)NonAf 58.39 Random Glucose 219 H Calcium 8.7 Total Bilirubin 0.5 AST 20 ALT 16 Alkaline Phosphatase 51 D Total Protein 5.8 L Albumin 3.0 L Active Medications Generic Name Dose Route Start Last Admin Trade Name Freq PRN Reason Stop Dose Admin Acetaminophen 650 mg 10/17/19 00:08 Tylenol - PO Q6H PRN FEVER Albuterol/Ipratropium 1 amp 10/17/19 08:00 10/17/19 21:05 Duoneb - NEB 1 amp RQID JONATHAN Administration Amlodipine Besylate 5 mg 10/17/19 10:00 10/17/19 09:48 Norvasc - PO 5 mg DAILY JONATHAN Administration Atorvastatin Calcium 40 mg 10/17/19 22:00 10/17/19 21:05 Lipitor - PO 40 mg HS JONATHAN Administration Budesonide/Formoterol Fumarate 1 puff 10/17/19 10:00 10/17/19 21:06 Symbicort 160/4.5mcg - IH 1 inh BID JONATHAN Administration Diazepam 10 mg 10/17/19 01:30 10/17/19 21:05 Valium - PO 10 mg HS JONATHAN Administration Finasteride 5 mg 10/17/19 10:00 10/17/19 09:50 Proscar - PO 5 mg DAILY JONAHTAN Administration Heparin Sodium (Porcine) 5,000 unit 10/17/19 06:00 10/18/19 06:20 Heparin - SQ 5,000 unit TID JONATHAN Administration Sodium Chloride 1,000 mls @ 75 mls/hr 10/16/19 23:45 10/18/19 06:19 Normal Saline - IV 75 mls/hr ASDIR JONATHAN Administration Ceftriaxone Sodium 50 mls @ 200 mls/hr 10/17/19 22:00 10/17/19 21:05 Ceftriaxone 1 Gm-D5w Bag IVPB 200 mls/hr DAILY JONATHAN Administration Protocol Azithromycin 250 mg/ Dextrose 250 mls @ 250 mls/hr 10/18/19 22:00 IVPB 10/20/19 22:59 DAILY@2200 JONATHAN Methylprednisolone Sodium Succinate 40 mg 10/17/19 02:00 10/18/19 01:24 Solu-Medrol - IVPUSH 40 mg Q8H-IV JONATHAN Administration Oseltamivir Phosphate 30 mg 10/17/19 14:15 10/17/19 21:05 Tamiflu - PO 10/22/19 14:14 30 mg BID JONATHAN Administration Pantoprazole Sodium 40 mg 10/17/19 10:00 10/17/19 09:50 Protonix - PO 40 mg DAILY JONATHAN Administration ASSESSMENT/PLAN 74 year-old male with a PMH significant for HTN, HLD, CAD, COPD, BPH, and PKD, who presented to the [facility] with 2 days of shortness of breath and fever. Admitted for severe sepsis possibly secondary to CAP. Severe sepsis possibly secondary to community acquired pneumonia Hypoxic respiratory failure Interstitial lung disease COPD --T103.7, p120, WBC 15.6, lactic acid 2.1 present on admission; satting in mid 80s in ED --has been afebrile for 24 hours, WBC trending up 15.6-->17.4k --10/17 CT chest: moderate to marked centrilobular emphysema; ILD with possible superimposed pneumonia both lower lobes --rapid flu negative, resp virus culture pending --continue azithro (day #3) and ceftriaxone (day #3); continue Tamiflu --duonebs, Symbicort, Spiriva --IV steroids per pulmonary --titrate SpO2<95% --pre post --daily bedside peakflow --chest PT Lactic acidosis --lactic acid starting to trend down Elevated creatinine --Cr 1.7 on admission, 1.2 today which is baseline Hypertension --BP stable --continue amlodipine Hyperlipidemia --continue atorvastatin Coronary artery disease --not on ASA or beta bocker therapy BPH --continue finasteride Polycystic kidney disease --no acute issues Diarrhea --c. diff ordered FEN Fluids: PO intake adequate Electrolytes: replete as indicated Nutrition: low sodium DVT prophylaxis: subq heparin Dispo: continues to require inpatient care. Full code. Visit type - Emergency Visit Emergency Visit: Yes ED Registration Date: 10/16/19 Care time: The patient presented to the Emergency Department on the above date and was hospitalized for further evaluation of their emergent condition. - New Patient This patient is new to me today: No - Critical Care Critical Care patient: No
[2019-10-18] MEDS: FINASTERIDE 5 MG TABLET (FP) PO SCH (10:18)
[2019-10-18] MEDS: OSELTAMIVIR PHOSPHATE 30 MG CAPSULE PO SCH ×2 (10:18→21:01)
[2019-10-18] MEDS: CEFTRIAXONE 1 G/50 ML PREMIX 50 ML IVPB SCH (10:18)
[2019-10-18] MEDS: ALBUTEROL SO4 2.5/IPRATROPIUM 0.5 INH SOL 3 ML VIAL.NEB. NEB SCH ×4 (10:18→19:23)
[2019-10-18] MEDS: amLODIPine BESYLATE 5 MG TABLET (FP) PO SCH (10:18)
[2019-10-18] MEDS: PANTOPRAZOLE 40 MG TABLET PO SCH (10:18)
[2019-10-18] MEDS: BUDESONIDE/FORMETEROL FUMARATE 160/4.5 mcg INHALER IH SCH ×2 (10:19→21:01)
[2019-10-18] MEDS: BICALUTAMIDE 50 MG TABLET (FP) PO SCH (15:03)
[2019-10-18] MEDS ORDERED: REFRIGERATED ANITBIOTICS ONE (20:48)
[2019-10-18] MEDS: ATORVASTATIN CA 40 MG TABLET (FP) PO SCH (21:01)
[2019-10-18] MEDS: AZITHROMYCIN IVPB 250 MG in DEXTROSE 5%-WATER - 250 ML IVPB SCH (21:02)
[2019-10-18] MEDS ORDERED: ALPRAZolam 1 MG TABLET PO ONE (22:08)
[2019-10-19] MEDS: methylPREDNISolone NA SUCC 40 MG/1 ML VIAL IVPUSH SCH ×3 (01:22→21:13)
[2019-10-19] MEDS: HEPARIN NA (PORCINE) 5,000 UNITS/ML 1ML VIAL SQ SCH ×3 (06:12→21:13)
[2019-10-19] MEDS: ALBUTEROL SO4 2.5/IPRATROPIUM 0.5 INH SOL 3 ML VIAL.NEB. NEB SCH ×4 (08:19→19:56)
--- NOTE | 2019-10-19 08:30 | PN ---
Physical Exam: SUBJECTIVE: Patient seen and examined at bedside. Patient advises he has home O2 , uses 2.5L. OBJECTIVE: Vital Signs Period Temp Pulse Resp BP Sys/Velázquez Pulse Ox Last 24 Hr 97.3 F-98.2 F 75-94 19-20 127-149/65-91 89-100 GENERAL: Awake, alert, and fully oriented, in no acute distress. LUNGS: Mild expiratory wheezing, improved HEART: Regular rate and rhythm, S1 and S2 ABDOMEN: Soft, nontender, not distended MUSCULOSKELETAL: Normal range of motion at all joints. No bony deformities or tenderness. No CVA tenderness. UPPER EXTREMITIES: 2+ pulses, warm, well-perfused. No cyanosis. No clubbing. No peripheral edema. LOWER EXTREMITIES: 2+ pulses, warm, well-perfused. No calf tenderness. No peripheral edema. NEUROLOGICAL: Cranial nerves II-XII intact. Normal speech. Self-positions easily. Laboratory Results - last 24 hr 10/18/19 10/18/19 08:55 09:02 Sodium 139 Potassium 4.2 Chloride 110 H Carbon Dioxide 23 Anion Gap 6 L BUN 27.0 H Creatinine 1.2 Est GFR (CKD-EPI)AfAm 67.67 Est GFR (CKD-EPI)NonAf 58.39 Random Glucose 219 H Lactic Acid 2.2 H* Calcium 8.7 Total Bilirubin 0.5 AST 20 ALT 16 Alkaline Phosphatase 51 D Total Protein 5.8 L Albumin 3.0 L Active Medications Generic Name Dose Route Start Last Admin Trade Name Freq PRN Reason Stop Dose Admin Acetaminophen 650 mg 10/17/19 00:08 10/18/19 15:15 Tylenol - PO 650 mg Q6H PRN Administration FEVER Albuterol/Ipratropium 1 amp 10/17/19 08:00 10/19/19 08:19 Duoneb - NEB 1 amp RQID JONATHAN Administration Amlodipine Besylate 5 mg 10/17/19 10:00 10/18/19 10:18 Norvasc - PO 5 mg DAILY JONATHAN Administration Atorvastatin Calcium 40 mg 10/17/19 22:00 10/18/19 21:01 Lipitor - PO 40 mg HS JONATHAN Administration Bicalutamide 50 mg 10/18/19 14:45 10/18/19 15:03 Casodex - PO 50 mg DAILY JONATHAN Administration Budesonide/Formoterol Fumarate 1 puff 10/17/19 10:00 10/18/19 21:01 Symbicort 160/4.5mcg - IH 1 puff BID JONATHAN Administration Famotidine 20 mg 10/19/19 10:00 Pepcid - PO DAILY JONATHAN Finasteride 5 mg 10/17/19 10:00 10/18/19 10:18 Proscar - PO 5 mg DAILY JONATHAN Administration Heparin Sodium (Porcine) 5,000 unit 10/17/19 06:00 10/19/19 06:12 Heparin - SQ 5,000 unit TID JOANTHAN Administration Ceftriaxone Sodium 50 mls @ 200 mls/hr 10/17/19 22:00 10/18/19 10:18 Ceftriaxone 1 Gm-D5w Bag IVPB 200 mls/hr DAILY JONATHAN Administration Protocol Azithromycin 250 mg/ Dextrose 250 mls @ 250 mls/hr 10/18/19 22:00 10/18/19 21 :02 IVPB 10/20/19 22:59 250 mls/hr DAILY@2200 JONATHAN Administration Methylprednisolone Sodium Succinate 40 mg 10/17/19 02:00 10/19/19 01:22 Solu-Medrol - IVPUSH 40 mg Q8H-IV JONATHAN Administration Oseltamivir Phosphate 30 mg 10/17/19 14:15 10/18/19 21:01 Tamiflu - PO 10/22/19 14:14 30 mg BID JONATHAN Administration ASSESSMENT/PLAN: 74 year-old male with a PMH significant for HTN, HLD, CAD, COPD on home O2, BPH , and polycystic kidney disease. Admitted for severe sepsis possibly secondary to CAP. Severe sepsis possibly secondary to community acquired pneumonia Acute on chronic hypoxic respiratory failure Interstitial lung disease COPD on home O2 --afebrile for 48 hours --10/17 CT chest: moderate to marked centrilobular emphysema; ILD with possible superimposed pneumonia both lower lobes --rapid flu negative, resp virus culture pending --continue azithro (day #4) and ceftriaxone (day #4); continue Tamiflu (last dose 10/21 evening) --duonebs, Symbicort, Spiriva --IV steroids per pulmonary --titrate SpO2<95% --patient uses 2.5L NC at home --daily bedside peakflow: 150 yesterday --chest PT Lactic acidosis --lactic acid remains elevated, may be due to albuterol Elevated creatinine --Cr 1.7 on admission, 1.1 today Hypertension --BP stable --continue amlodipine Hyperlipidemia --continue atorvastatin Coronary artery disease --not on ASA or beta bocker therapy BPH --continue finasteride Polycystic kidney disease --no acute issues Diarrhea --c. diff ordered; has not had any further episodes, nothing to collect FEN Fluids: PO intake adequate Electrolytes: replete as indicated Nutrition: low sodium DVT prophylaxis: subq heparin Dispo: continues to require inpatient care. Full code. Visit type - Emergency Visit Emergency Visit: Yes ED Registration Date: 10/16/19 Care time: The patient presented to the Emergency Department on the above date and was hospitalized for further evaluation of their emergent condition. - New Patient This patient is new to me today: No - Critical Care Critical Care patient: No
[2019-10-19 09:19] LABS: HEMATOCRIT 40.6 % (35.4-49); HEMOGLOBIN 13.1 GM/dl (11.7-16.9); MCH 30.4 pg (25.7-33.7); MCHC 32.1 g/dl (32.0-35.9); MEAN CELL VOLUME 94.7 fl (80-96); MEAN PLT VOLUME 9.2 fl (7.5-11.1); PLATELET COUNT 240 K/MM3 (134-434); RBC 4.29 M/mm3 (4.00-5.60); RDW 12.9 % (11.9-15.9); WHITE BLOOD COUNT 16.2 K/mm3 (4.0-10.8)
[2019-10-19 09:25] LABS: ALBUMIN 3.2 g/dl (3.4-5.0); BILIRUBIN,TOTAL 0.4 mg/dl (0.2-1); CALCIUM 8.8 mg/dl (8.5-10); CREATININE 1.1 mg/dl (0.55-1.3); MAGNESIUM 1.8 mg/dL (1.8-2.4); POTASSIUM 4.3 mmol/L (3.5-5.1); TOT PROT 6.1 g/dl (6.4-8.2)
[2019-10-19] MEDS: FINASTERIDE 5 MG TABLET (FP) PO SCH (09:45)
[2019-10-19] MEDS: amLODIPine BESYLATE 5 MG TABLET (FP) PO SCH (09:45)
[2019-10-19] MEDS: FAMOTIDINE 20 MG TABLET PO SCH (09:45)
[2019-10-19] MEDS: BICALUTAMIDE 50 MG TABLET (FP) PO SCH (09:45)
[2019-10-19] MEDS: OSELTAMIVIR PHOSPHATE 30 MG CAPSULE PO SCH ×2 (09:45→21:13)
[2019-10-19] MEDS: BUDESONIDE/FORMETEROL FUMARATE 160/4.5 mcg INHALER IH SCH ×2 (09:46→21:13)
[2019-10-19] MEDS: CEFTRIAXONE 1 G/50 ML PREMIX 50 ML IVPB SCH (09:46)
[2019-10-19 10:17] LABS: PLATELET ESTIMATE ADEQUATE
--- NOTE | 2019-10-19 14:50 | PN ---
Progress Note (short form) - Note Progress Note: PULMONARY STILL WHEEZING VSS/AFEBRILE ANICTERIC B/L EXP WHEEZES S1S2 BS+ NO EDEMA LABS/MEDS/NOTES/IMAGES/MICRO REVIEWED Imaging NOTED - Results Chest X-ray: Report Reviewed, Image Reviewed Cat Scan: Report Reviewed, Image Reviewed Problem List - Problems (1) COPD exacerbation Code(s): J44.1 - CHRONIC OBSTRUCTIVE PULMONARY DISEASE W (ACUTE) EXACERBATION (2) Pneumonia Code(s): J18.9 - PNEUMONIA, UNSPECIFIED ORGANISM Qualifiers: Pneumonia type: due to unspecified organism Laterality: right Lung location: lower lobe of lung Qualified Code(s): J18.9 - Pneumonia, unspecified organism (3) Acute on chronic respiratory failure with hypoxemia Code(s): J96.21 - ACUTE AND CHRONIC RESPIRATORY FAILURE WITH HYPOXIA (4) Renal insufficiency Code(s): N28.9 - DISORDER OF KIDNEY AND URETER, UNSPECIFIED (5) Hypertension Code(s): I10 - ESSENTIAL (PRIMARY) HYPERTENSION (6) S/P CABG (coronary artery bypass graft) Code(s): Z95.1 - PRESENCE OF AORTOCORONARY BYPASS GRAFT (7) Sleep apnea Code(s): G47.30 - SLEEP APNEA, UNSPECIFIED Assessment/Plan ACUTE ON CHRONIC HYPOXEMIC RESP FAILURE ACUTE EXACERBATION COPD ?RIGHT BASILAR INFILTRATE ON CT SYMPTOMS COULD BE C/W INFLUENZA (DESPITE RAPID A/B NEGATIVE) RESP VIRAL PCR PENDING O2 SUPPLEMENTATION/BRONCHODILATION/ANTIBIOTICS IV STEROIDS TO CONTINUE TAMIFLU 75MG BID Carter VERMA MD Problem List - Problems (1) COPD exacerbation Code(s): J44.1 - CHRONIC OBSTRUCTIVE PULMONARY DISEASE W (ACUTE) EXACERBATION (2) Pneumonia Code(s): J18.9 - PNEUMONIA, UNSPECIFIED ORGANISM Qualifiers: Pneumonia type: due to unspecified organism Laterality: right Lung location: lower lobe of lung Qualified Code(s): J18.9 - Pneumonia, unspecified organism (3) Acute on chronic respiratory failure with hypoxemia Code(s): J96.21 - ACUTE AND CHRONIC RESPIRATORY FAILURE WITH HYPOXIA (4) Renal insufficiency Code(s): N28.9 - DISORDER OF KIDNEY AND URETER, UNSPECIFIED (5) Hypertension Code(s): I10 - ESSENTIAL (PRIMARY) HYPERTENSION (6) S/P CABG (coronary artery bypass graft) Code(s): Z95.1 - PRESENCE OF AORTOCORONARY BYPASS GRAFT (7) Sleep apnea Code(s): G47.30 - SLEEP APNEA, UNSPECIFIED
[2019-10-19] MEDS ORDERED: REFRIGERATED ANITBIOTICS ONE (20:56)
[2019-10-19] MEDS: AZITHROMYCIN IVPB 250 MG in DEXTROSE 5%-WATER - 250 ML IVPB SCH (21:13)
[2019-10-19] MEDS: ATORVASTATIN CA 40 MG TABLET (FP) PO SCH (21:14)
[2019-10-19] MEDS ORDERED: diazePAM 5 MG TABLET PO ONE (22:00)
[2019-10-20] MEDS: HEPARIN NA (PORCINE) 5,000 UNITS/ML 1ML VIAL SQ SCH (06:35)
--- NOTE | 2019-10-20 08:15 | DS ---
Physical Exam: SUBJECTIVE: Patient seen and examined at bedside. OBJECTIVE: Vital Signs Period Temp Pulse Resp BP Sys/Velázquez Pulse Ox Last 24 Hr 97.7 F-98.3 F 75-81 17-20 137-171/70-86 95-100 PHYSICAL EXAM GENERAL: Awake, alert, and fully oriented, in no acute distress. LUNGS: Mild expiratory wheezing, improved HEART: Regular rate and rhythm, S1 and S2 ABDOMEN: Soft, nontender, not distended MUSCULOSKELETAL: Normal range of motion at all joints. No bony deformities or tenderness. No CVA tenderness. UPPER EXTREMITIES: 2+ pulses, warm, well-perfused. No cyanosis. No clubbing. No peripheral edema. LOWER EXTREMITIES: 2+ pulses, warm, well-perfused. No calf tenderness. No peripheral edema. NEUROLOGICAL: Cranial nerves II-XII intact. Normal speech. Self-positions easily. LABS Laboratory Results - last 24 hr 10/19/19 10/19/19 10/19/19 08:55 08:55 08:55 WBC 16.2 H RBC 4.29 Hgb 13.1 Hct 40.6 MCV 94.7 MCH 30.4 MCHC 32.1 RDW 12.9 Plt Count 240 D MPV 9.2 Absolute Neuts (auto) 15.4 Neutrophils % 96.0 H Neutrophils % (Manual) 96.0 H* Lymphocytes % 3.0 L D Lymphocytes % (Manual) 3.0 L D Monocytes % 1.0 L D Monocytes % (Manual) 1 L Eosinophils % Delivery Manager Basophils % Delivery Manager Platelet Estimate Adequate Sodium 140 Potassium 4.3 Chloride 108 H Carbon Dioxide 25 Anion Gap 7 L BUN 24.0 H Creatinine 1.1 Est GFR (CKD-EPI)AfAm 75.18 Est GFR (CKD-EPI)NonAf 64.86 Random Glucose 223 H Lactic Acid 2.6 H* Calcium 8.8 Magnesium 1.8 Total Bilirubin 0.4 AST 23 ALT 20 Alkaline Phosphatase 54 Total Protein 6.1 L Albumin 3.2 L HOSPITAL COURSE: Date of Admission:10/16/19 Date of Discharge: 10/20/19 Pre-Hospital Course 74 year-old male with a PMH significant for HTN, HLD, CAD, COPD, BPH, and polycystic kidney disease, who presented to the [facility] with 2 days of shortness of breath and fever. As per patient, his symptoms initially onset yesterday as shortness of breath with a low grade fever. Today he began to develop chills, headache, diffuse myalgias, and wheezing, prompting his arrival to the ED. Patient today completed 10-day course of Macrobid for a UTI. He denies any recent nausea, vomit, diarrhea or constipation. He denies any recent chest pain or palpitations. He denies any recent dysuria, frequency, urgency or hematuria. ED Course (1) T 103.7, p120, WBC 15.6, sats 80s (2) Lactic acid 2.1-->2.4-->2.5 (3) Cr 1.7 Subsequent Hospital Course 74 year-old male with a PMH significant for HTN, HLD, CAD, COPD on home O2, BPH , and polycystic kidney disease. Admitted for severe sepsis secondary to CAP. Severe sepsis possibly secondary to community acquired pneumonia Acute on chronic hypoxic respiratory failure Interstitial lung disease COPD on home O2 --T103.7, p120, WBC 15.6, lactic acid 2.1 present on admission; satting in mid 80s in ED --10/17 CT chest: moderate to marked centrilobular emphysema; ILD with possible superimposed pneumonia both lower lobes --rapid flu negative, pneumonia urine Ag negative --treated with azithro and ceftriaxone x 5 days; Tamiflu course complete; discharged on augmentin --treated with duonebs, Symbicort, Spiriva --treated with IV steroids per pulmonary, discharged on PO taper Lactic acidosis --lactic acid remained elevated, may be due to albuterol Elevated creatinine --Cr 1.7 on admission, 1.1 at time of discharge Hypertension --BP stable --continue amlodipine Hyperlipidemia --continue atorvastatin Coronary artery disease --not on ASA or beta bocker therapy BPH --continue finasteride Polycystic kidney disease --no acute issues Diarrhea --c. diff negative Minutes to complete discharge: 35 Discharge Summary Problems reviewed: Yes Reason For Visit: COPD EXACERBATION. Current Active Problems COPD exacerbation (Acute) Pneumonia (Acute) Condition: Improved - Instructions Diet, Activity, Other Instructions: Three prescriptions have been sent to your pharmacy: 1. Augmentin 2. Tamiflu 3. Prednisone Take these medications as directed and be sure to finish all the medication. Continue to use your home oxygen as needed. It is recommended you follow up with your primary care provider within one week of your discharge. You will need a follow up chest xray in 6 weeks. Referrals: Horacio Miranda MD [Staff Physician] - Macario Zapata MD [Primary Care Provider] - Disposition: HOME - Home Medications Comprehensive Discharge Medication List: Ambulatory Orders Albuterol Sulfate Inhaler - [Ventolin HFA Inhaler -] 1 - 2 inh PO Q4H PRN Omeprazole [Prilosec (RX)] 40 mg PO DAILY 06/23/15 Amlodipine Besylate [Norvasc -] 5 mg PO DAILY #30 tablet 06/25/15 Atorvastatin Ca [Lipitor] 40 mg PO HS 11/07/16 Budesonide/Formeterol Fumarate [SYMBICORT 160/4.5mcg -] 1 inh PO BID 11/07/16 Diazepam 10 mg PO DAILY 11/07/16 Finasteride [Proscar -] 5 mg PO DAILY 11/07/16 Tiotropium [place] [Spiriva] 1 puff IH DAILY #1 inh 11/11/16 This patient is new to me today: No Emergency Visit: Yes ED Registration Date: 10/16/19 Care time: The patient presented to the Emergency Department on the above date and was hospitalized for further evaluation of their emergent condition. Critical Care patient: No - Discharge Referral Referred to [facility] No
[2019-10-20] MEDS: methylPREDNISolone NA SUCC 40 MG/1 ML VIAL IVPUSH SCH (09:08)
[2019-10-20] MEDS: OSELTAMIVIR PHOSPHATE 30 MG CAPSULE PO SCH (09:09)
[2019-10-20] MEDS: FAMOTIDINE 20 MG TABLET PO SCH (09:09)
[2019-10-20] MEDS: BICALUTAMIDE 50 MG TABLET (FP) PO SCH (09:09)
[2019-10-20] MEDS: amLODIPine BESYLATE 5 MG TABLET (FP) PO SCH (09:09)
[2019-10-20] MEDS: ALBUTEROL SO4 2.5/IPRATROPIUM 0.5 INH SOL 3 ML VIAL.NEB. NEB SCH ×2 (09:10→12:50)
[2019-10-20] MEDS: CEFTRIAXONE 1 G/50 ML PREMIX 50 ML IVPB SCH (09:11)
[2019-10-20] MEDS: BUDESONIDE/FORMETEROL FUMARATE 160/4.5 mcg INHALER IH SCH (09:30)
[2019-10-20] MEDS: FINASTERIDE 5 MG TABLET (FP) PO SCH (09:30)
[2019-10-20 10:37] VITALS: BP 146/77; PULSE 75; TEMP 98.1
== END 2019-10-20 12:54 | disposition home or self-care (01) | DRG 871 ==
LOC: FER 21:20 → FM/S 23:50 → UNDOADMIN 10-17 00:17 → FM/S 10-17 00:17
PROVIDERS: ADMIT Internal Medicine; ATTEND Nurse Practitioner Acute Care
DX: A41.9 Sepsis, unspecified organism (principal); J11.08 Influenza due to unidentified influenza virus with specified pneumonia; J96.21 Acute and chronic respiratory failure with hypoxia; J44.1 Chronic obstructive pulmonary disease with (acute) exacerbation; E87.2 Acidosis; J84.9 Interstitial pulmonary disease, unspecified; N28.9 Disorder of kidney and ureter, unspecified; E78.5 Hyperlipidemia, unspecified; I25.10 Atherosclerotic heart disease of native coronary artery without angina pectoris; N40.0 Benign prostatic hyperplasia without lower urinary tract symptoms; R19.7 Diarrhea, unspecified; Z95.1 Presence of aortocoronary bypass graft; G47.30 Sleep apnea, unspecified
CPT/HCPCS: 36415; 71045-TC-FY; 71250-TC; 80048; 80053; 81003; 81015; 82550; 82803; 83605; 83735; 84484; 85025; 85027; 87040; 87086; 87254; 87324; 87449; 87804; 87899; 93005; 94640; J0131; J1644; J7030

== ENCOUNTER 2022-03-20 08:41 | Emergency (ER) | payer OTHER ==
[2022-03-20 08:52] VITALS: TEMP 100.2; BMI 23.8
[2022-03-20] MEDS ORDERED: BEBTELOVIMAB (EUA) 175 MG/2 ML VIAL IVPUSH ONE (09:29)
[2022-03-20 10:46] LABS: HEMATOCRIT 46.6 % (35.4-49); HEMOGLOBIN 15.5 G/dL (11.7-16.9); MCH 31.2 pg (25.7-33.7); MCHC 33.2 g/dl (32.0-35.9); MEAN PLT VOLUME 9.1 fl (7.5-11.1); PLATELET COUNT 173.5 10^3/uL (134-434); RBC 4.96 10^6/uL (4.00-5.60); WHITE BLOOD COUNT 6.6 10^3/uL (4.0-10.8)
[2022-03-20 10:52] LABS: BILIRUBIN,TOTAL 0.4 mg/dl (0.2-1); CALCIUM 9.5 mg/dl (8.5-10); CREATININE 1.6 mg/dl (0.55-1.3); TOT PROT 6.8 g/dl (6.4-8.2)
[2022-03-20 12:30] VITALS: PULSE 81
[2022-03-20 13:07] VITALS: BP 156/87
[2022-03-20] MEDS ORDERED: ACETAMINOPHEN 325 MG TABLET (FP) PO ONE (13:15)
[2022-03-20] MEDS ORDERED: ACETAMINOPHEN 325 MG TABLET (FP) ONE (13:21)
== END 2022-03-20 13:25 | disposition home or self-care (01) ==
LOC: FER 08:41
DX: U07.1 COVID-19 (principal)
CPT/HCPCS: 36415; 71045-TC-FY; 80053; 84484; 85027; 93005; 96374; 99284-25; M0222; Q0222

== ENCOUNTER 2022-04-11 21:25 | Inpatient (IN) | payer OTHER ==
[2022-04-11 21:50] VITALS: BMI 23.7
[2022-04-11] MEDS ORDERED: SODIUM CHLORIDE IV ONE (22:06)
[2022-04-11 22:31] LABS: HEMATOCRIT 40.8 % (35.4-49); MCH 31.7 pg (25.7-33.7); MCHC 34.2 g/dl (32.0-35.9); MEAN CELL VOLUME 92.8 fl (80-96); PLATELET COUNT 215.7 10^3/uL (134-434); RDW 13.8 % (11.9-15.9); WHITE BLOOD COUNT 10.5 10^3/uL (4.0-10.8)
[2022-04-11 22:44] LABS: INR 1.09 (0.83-1.09); PROTHROMBIN TIME (PATIENT) 12.5 SEC (9.7-13.0)
[2022-04-11 22:46] LABS: ACTIVATED PTT 23.4 SECONDS (25.2-36.5)
[2022-04-11 22:51] LABS: ALBUMIN 3.8 g/dl (3.4-5.0); BILIRUBIN,TOTAL 0.6 mg/dl (0.2-1); CALCIUM 9.2 mg/dl (8.5-10); CREATININE 1.4 mg/dl (0.55-1.3); MAGNESIUM 1.3 mg/dL (1.8-2.4); TOT PROT 6.1 g/dl (6.4-8.2)
[2022-04-11 23:13] LABS: VENOUS BASE EXCESS -1.4 mmol/L (-2-2); VENOUS O2 SATURATION 92.3 % (70-80); VENOUS PCO2 41.6 mmHg (38-52); VENOUS PH 7.374 (7.310-7.410)
[2022-04-11] MEDS ORDERED: ACETAMINOPHEN 1000 MG/100 ML BAG IVPB ONE (23:27)
[2022-04-11] MEDS ORDERED: ACETAMINOPHEN INJECTION 100 ML IVPB ONE (23:31)
[2022-04-12] MEDS ORDERED: ACETAMINOPHEN 325 MG TABLET (FP) PO PRN (01:39)
[2022-04-12] MEDS ORDERED: MAGNESIUM SULF 50% (8.12 MEQ/2 ML-1 GM VIAL) IVPB ONE (01:43)
[2022-04-12] MEDS ORDERED: ALBUTEROL SO4 HFA INHALER IH PRN (01:47)
[2022-04-12] MEDS ORDERED: MAGNESIUM 1GM/D5W - 1 GM/100 ML IVPB IVPB ONE (01:53)
[2022-04-12] MEDS ORDERED: HEPARIN NA (PORCINE) 5,000 UNITS/ML 1ML VIAL ONE (06:49)
[2022-04-12] MEDS: HEPARIN NA (PORCINE) 5,000 UNITS/ML 1ML VIAL SQ SCH ×3 (06:52→21:16)
[2022-04-12 08:17] LABS: HEMATOCRIT 36.8 % (35.4-49); HEMOGLOBIN 12.2 G/dL (11.7-16.9); MCH 31.5 pg (25.7-33.7); MCHC 33.3 g/dl (32.0-35.9); MEAN CELL VOLUME 94.9 fl (80-96); MEAN PLT VOLUME 9.8 fl (7.5-11.1); PLATELET COUNT 195.6 10^3/uL (134-434); RBC 3.88 10^6/uL (4.00-5.60); RDW 13.5 % (11.9-15.9); WHITE BLOOD COUNT 10.3 10^3/uL (4.0-10.8)
[2022-04-12 08:58] LABS: CALCIUM 8.4 mg/dl (8.5-10); CREATININE 1.3 mg/dl (0.55-1.3); MAGNESIUM 1.9 mg/dL (1.8-2.4); PHOSPHOROUS 3.6 mg/dl (2.5-4.9)
[2022-04-12 08:58] LABS: PLATELET ESTIMATE ADEQUATE
[2022-04-12] MEDS: BUDESONIDE/FORMETEROL FUMARATE 160/4.5 mcg INHALER IH SCH ×2 (09:37→21:17)
[2022-04-12] MEDS: BICALUTAMIDE 50 MG TABLET (FP) PO SCH (09:37)
[2022-04-12] MEDS: FINASTERIDE 5 MG TABLET (FP) PO SCH (09:37)
[2022-04-12] MEDS ORDERED: ALBUTEROL SO4 2.5/IPRATROPIUM 0.5 INH SOL 3 ML VIAL.NEB. NEB PRN (15:04)
[2022-04-12] MEDS ORDERED: DEXAMETHASONE SOD PHOSPHATE 10 MG/1 ML VIAL IVPUSH ONE (15:15)
[2022-04-12] MEDS: CEFTRIAXONE 1 GM in DEXTROSE 5%-WATER - 50 ML IVPB SCH (15:49)
[2022-04-12] MEDS: AZITHROMYCIN IVPB 500 MG in DEXTROSE 5%-WATER - 250 ML IVPB SCH (17:54)
[2022-04-12] MEDS ORDERED: TIZANIDINE HCL 2 MG TABLET PO PRN (17:57)
[2022-04-12] MEDS: SODIUM CHLORIDE 0.45% 1,000 ML IV SCH (21:11)
[2022-04-12] MEDS: diazePAM 5 MG TABLET PO PRN (21:17)
[2022-04-12] MEDS: ATORVASTATIN CA 40 MG TABLET (FP) PO SCH (21:17)
[2022-04-13] MEDS: HEPARIN NA (PORCINE) 5,000 UNITS/ML 1ML VIAL SQ SCH ×3 (05:00→21:26)
[2022-04-13 07:54] LABS: BASO % 0.5 % (0-2.0); HEMOGLOBIN 12.9 GM/dL (11.7-16.9); LYMPH % 7.3 % (8-40); MCH 30.6 pg (25.7-33.7); MEAN CELL VOLUME 92.6 fl (80-96); MEAN PLT VOLUME 10.4 fl (7.5-11.1); MONO % 5.6 % (3.8-10.2); NEUT % 86.6 % (42.8-82.8); PLATELET COUNT 165 10^3/uL (134-434); RBC 4.21 M/mm3 (4.00-5.60); RDW 13.4 % (11.9-15.9)
[2022-04-13 09:24] LABS: ALBUMIN 3.5 g/dl (3.4-5.0); BILIRUBIN,TOTAL 0.2 mg/dL (0.2-1); BLOOD UREA NITROGEN 23.9 mg/dL (7-18); CALCIUM 8.8 mg/dL (8.5-10.1); TOT PROT 6.2 g/dl (6.4-8.2)
[2022-04-13] MEDS: CEFTRIAXONE 1 GM in DEXTROSE 5%-WATER - 50 ML IVPB SCH (09:37)
[2022-04-13] MEDS: BICALUTAMIDE 50 MG TABLET (FP) PO SCH (09:39)
[2022-04-13] MEDS: FINASTERIDE 5 MG TABLET (FP) PO SCH (09:39)
[2022-04-13] MEDS: amLODIPine BESYLATE 5 MG TABLET (FP) PO SCH (09:40)
[2022-04-13] MEDS: DEXAMETHASONE SOD PHOSPHATE 10 MG/1 ML VIAL IVPUSH SCH (09:40)
[2022-04-13] MEDS: BUDESONIDE/FORMETEROL FUMARATE 160/4.5 mcg INHALER IH SCH ×2 (09:40→21:27)
[2022-04-13] MEDS ORDERED: PATIENT'S OWN MEDICATION (NON-FORMULARY) (Diazepam [Diazepam] 10 MG Tablet) PO SCH (10:00)
[2022-04-13] MEDS ORDERED: diazePAM 5 MG TABLET PO SCH (10:00)
[2022-04-13] MEDS ORDERED: ASPIRIN COATED 81 MG TABLET.EC PO SCH (10:15)
[2022-04-13] MEDS: AZITHROMYCIN IVPB 500 MG in DEXTROSE 5%-WATER - 250 ML IVPB SCH (10:48)
[2022-04-13] MEDS: ASPIRIN 325 MG ENTERIC COATED TABLET (FP) PO SCH (10:51)
[2022-04-13 11:42] LABS: N-TERMINAL BNP 2037.6 pg/ml (5-450)
[2022-04-13] MEDS: ATORVASTATIN CA 40 MG TABLET (FP) PO SCH (21:27)
[2022-04-13] MEDS: diazePAM 5 MG TABLET PO PRN (21:34)
[2022-04-13] MEDS: SODIUM CHLORIDE 0.45% 1,000 ML IV SCH (21:35)
[2022-04-14] MEDS: HEPARIN NA (PORCINE) 5,000 UNITS/ML 1ML VIAL SQ SCH ×2 (06:22→13:47)
[2022-04-14] MEDS: amLODIPine BESYLATE 5 MG TABLET (FP) PO SCH (09:22)
[2022-04-14] MEDS: ASPIRIN 325 MG ENTERIC COATED TABLET (FP) PO SCH (09:22)
[2022-04-14] MEDS: FINASTERIDE 5 MG TABLET (FP) PO SCH (09:22)
[2022-04-14] MEDS: DEXAMETHASONE SOD PHOSPHATE 10 MG/1 ML VIAL IVPUSH SCH (09:22)
[2022-04-14] MEDS: CEFTRIAXONE 1 GM in DEXTROSE 5%-WATER - 50 ML IVPB SCH (09:22)
[2022-04-14] MEDS: BUDESONIDE/FORMETEROL FUMARATE 160/4.5 mcg INHALER IH SCH (09:23)
[2022-04-14] MEDS: BICALUTAMIDE 50 MG TABLET (FP) PO SCH (09:26)
[2022-04-14 09:27] LABS: BASO % 0.9 % (0-2.0); EOS % 0.2 % (0-4.5); HEMATOCRIT 42.2 % (35.4-49); HEMOGLOBIN 13.7 GM/dL (11.7-16.9); LYMPH % 12.1 % (8-40); MCH 30.1 pg (25.7-33.7); MCHC 32.4 g/dl (32.0-35.9); MEAN CELL VOLUME 92.8 fl (80-96); MEAN PLT VOLUME 10.4 fl (7.5-11.1); MONO % 9.8 % (3.8-10.2); PLATELET COUNT 173 10^3/uL (134-434); RBC 4.55 M/mm3 (4.00-5.60); RDW 13.5 % (11.9-15.9)
[2022-04-14 09:43] VITALS: RESP 17
[2022-04-14] MEDS ORDERED: AZITHROMYCIN IVPB 500 MG/250 ML BAG IVPB SCH ×2 (10:00→10:16)
[2022-04-14] MEDS: AZITHROMYCIN IVPB 500 MG in DEXTROSE 5%-WATER - 250 ML IVPB SCH (10:33)
[2022-04-14 11:30] LABS: ALBUMIN 3.9 g/dl (3.4-5.0); BLOOD UREA NITROGEN 18.8 mg/dL (7-18); CALCIUM 9.8 mg/dL (8.5-10.1)
[2022-04-14 11:31] LABS: MAGNESIUM 2.1 mg/dL (1.8-2.4)
[2022-04-14 11:33] LABS: CREATININE 1.1 mg/dL (0.55-1.3)
[2022-04-14 11:35] LABS: BILIRUBIN,TOTAL 0.3 mg/dL (0.2-1); TOT PROT 6.8 g/dl (6.4-8.2)
[2022-04-14 15:20] VITALS: BP 147/64; PULSE 59; TEMP 97.4
== END 2022-04-14 18:30 | disposition left against medical advice (07) | DRG 871 ==
LOC: FER 21:25 → JERBED 22:19 → J4S 04-12 10:03
PROVIDERS: ADMIT Hospitalist; ATTEND Nurse Practitioner Family
PROC: 3E0333Z Introduction of Anti-inflammatory into Peripheral Vein, Percutaneous Approach (ICD-10-PCS; principal; 2022-04-12)
DX: A41.89 Other specified sepsis (principal); U07.1 COVID-19; N17.9 Acute kidney failure, unspecified; J44.1 Chronic obstructive pulmonary disease with (acute) exacerbation; J96.11 Chronic respiratory failure with hypoxia; I25.10 Atherosclerotic heart disease of native coronary artery without angina pectoris; I10 Essential (primary) hypertension; E78.5 Hyperlipidemia, unspecified; E86.0 Dehydration; N40.0 Benign prostatic hyperplasia without lower urinary tract symptoms; N28.1 Cyst of kidney, acquired; I49.3 Ventricular premature depolarization; R94.31 Abnormal electrocardiogram [ECG] [EKG]; Z99.81 Dependence on supplemental oxygen; Z95.1 Presence of aortocoronary bypass graft; Z95.5 Presence of coronary angioplasty implant and graft
CPT/HCPCS: 0241U-QW; 36415; 71045-TC-FY; 71275-TC; 80048; 80053; 80061; 81003; 82550; 82803; 83036; 83605; 83615; 83735; 83880; 84100; 84484; 85025; 85027; 85379; 85610; 85730; 86140; 86850; 86900; 86901; 87040; 87086; 93005; 93010; 93306-TC; 97116-GP; 99291; C9803-CS; J1100; J1644; Q9967; U0003; U0005